=== PATIENT | male | born 1975 | race Caucasian/White ===

== ENCOUNTER → 2019-11-15 08:33 | Outpatient (CLI) | payer SELFPAY ==
[2019-11-15 10:17] LABS: Urine N gonorrhoeae NOT DETECTED
[2019-11-15 10:19] LABS: Urine Chlamydia NOT DETECTED
[2019-11-16 21:35] LABS: Bacteria Urine None Seen; WBC Urine None Seen (0-5/HPF)
[2019-11-16 21:36] LABS: Appearance Urine UA CLEAR; Bilirubin Urine UA NEGATIVE (NEGATIVE); Glucose Urine UA NEGATIVE (Negative); Ketones Urine UA NEGATIVE (NEGATIVE); Leukocyte Esterase Urine UA NEGATIVE (NEGATIVE); Nitrite Urine UA NEGATIVE (Negative); Occult Blood Urine UA 1+ (Negative); Protein Urine UA NEGATIVE (Negative); Urobilinogen Urine UA 0.2 E.U./dL (0.2); pH Urine UA 6.5 (4.5-8.0)
[2019-11-16 21:52] LABS: Color Urine UA Dark Yellow
[2019-11-16 21:54] LABS: Calcium Oxalate Crystals Urine Occasional; Culture Indicated Urine Cult Not Indicated; RBC Urine 0-1/HPF (0-5/HPF)
== END ==
PROVIDERS: Visit Provider Nurse Practitioner
DX: Z11.3 Encounter for screening for infections with a predominantly sexual mode of transmission (principal)
CPT/HCPCS: 81001; 87491; 87591

== ENCOUNTER → 2019-11-15 08:49 | Outpatient (CLI) | payer SELFPAY ==
[2019-11-15 10:49] LABS: HIV 1 & 2 Ab/Ag 4th Gen Combo NEGATIVE (NEGATIVE); Hep C Virus Ab w/Reflex Quant NEGATIVE s/c (NEGATIVE)
[2019-11-17 20:31] LABS: RPR Screen Nonreactive (Nonreactive)
[2019-11-19 13:17] LABS: HSV 1 IgM Screen Positive (Negative); HSV 2 IgM Screen Positive (Negative)
== END ==
PROVIDERS: PCP Nurse Practitioner; Visit Provider Nurse Practitioner
DX: Z11.3 Encounter for screening for infections with a predominantly sexual mode of transmission (principal)
CPT/HCPCS: 36415; 86592; 86695; 86696; 86803; 87389

== ENCOUNTER → 2022-04-03 11:33 | Outpatient (CLI) | payer OTHER, SELFPAY ==
--- NOTE | 2022-04-03 | DI.MRI.S_ITS ---
PROCEDURE: MR LUMBAR SPINE WO CON INDICATIONS: Chronic low back pain TECHNIQUE: Noncontrast sagittal T1 spin echo and T2 fast echo, sagittal STIR, and T2 fast spin echo through the lumbar spine. In cases with scoliosis, additional coronal T2 fast spin echo may be performed. COMPARISON: None. FINDINGS: Image quality: Excellent. Alignment and Curvature: There is approximately 7 millimeters of L4-L5 anterolisthesis. Bone Marrow: Mixed Modic type 1-2 reactive endplate changes noted adjacent to the L4-L5 disc. No acute vertebral body compression fractures. Spinal Cord: Conus medullaris terminates at the T12 level. Visualized cord demonstrates normal signal and size. Paraspinous Soft Tissues: No paravertebral masses. T12-L1: Normal appearance. L1-L2: Normal appearance. L2-L3: Loss of disc signal. Mild, diffuse disc bulge. Moderate-sized central disc protrusion. Mild bilateral facet hypertrophy. Severe narrowing of the central canal with compression of the nerve roots of the cauda equina. Moderate bilateral neural foraminal narrowing. L3-L4: Disc has a normal appearance. Moderate bilateral facet hypertrophy. Moderate ligamentum flavum hypertrophy. Mild epidural lipomatosis. Severe narrowing of the central canal with compression of the nerve roots of the cauda equina. L4-L5: Loss of disc signal and height. Mild, diffuse disc bulge. Mild bilateral facet hypertrophy. Epidural lipomatosis. Severe narrowing of the central canal with compression of the nerve roots of the cauda equina. Severe bilateral neural foraminal narrowing with compression of the exiting L4 nerve roots. L5-S1: Disc has a normal appearance. Mild bilateral facet hypertrophy. Epidural lipomatosis. Severe narrowing of the central canal secondary to epidural lipomatosis. No neural foraminal narrowing. IMPRESSION: 1. Grade 1 L4-L5 spondylolisthesis. 2. Multilevel degenerative disc disease. 3. Multilevel facet arthropathy. 4. Severe L2-L3, L3-L4, L4-L5 and L5-S1 central canal narrowing. 5. Severe bilateral L4-L5 neural foraminal narrowing. Dictated by: Steffany Alexis MD, PhD on 04/03/2022 at 15:44 Approved by: Steffany Alexis MD, PhD on 04/03/2022 at 15:48
== END ==
DX: M51.36 Other intervertebral disc degeneration, lumbar region (principal); M47.816 Spondylosis without myelopathy or radiculopathy, lumbar region; M47.817 Spondylosis without myelopathy or radiculopathy, lumbosacral region; M48.061 Spinal stenosis, lumbar region without neurogenic claudication; M48.07 Spinal stenosis, lumbosacral region; M43.16 Spondylolisthesis, lumbar region; M54.50 Low back pain, unspecified; G89.29 Other chronic pain
CPT/HCPCS: 72148

== ENCOUNTER → 2022-05-15 12:47 | Outpatient (CLI) | payer OTHER, SELFPAY ==
--- NOTE | 2022-05-15 | DI.CT.S_ITS ---
PROCEDURE: CT LUMBAR SPINE WO CON INDICATIONS: Spinal stenosis, lumbar region TECHNIQUE: Noncontrast 3 mm thick sections acquired from the T12 level to the sacrum. Sagittal and coronal reformats were constructed. For radiation dose reduction, the following was used: automated exposure control. COMPARISON: [facility], MR, MR LUMBAR SPINE WO CON, 04/03/2022, 11:45. FINDINGS: Image quality: Excellent. Bones: No vertebral body compression fractures. There is severe disc space narrowing at L4-5 with endplate sclerosis and grade 1 anterolisthesis measuring 10 mm due to bilateral pars defects. There is a posterior disc osteophyte at the inferior endplate of L2. T12-L1: No significant disc bulge. The foramina and central canal are patent. L1-L2: No significant disc bulge. The foramina and central canal are patent. L2-L3: Diffuse disc bulge and disc osteophytes causing moderate bilateral foraminal stenosis and moderate central canal stenosis. L3-L4: No significant disc bulge. The foramina and central canal are patent. L4-L5: Bilateral pars defects of L4 with 10 mm anterolisthesis. Severe disc space narrowing at this level. The foramina have [id number] stenosis. The central canal is patent. L5-S1: Diffuse disc bulge with no significant foraminal or central canal stenosis. Soft tissues: No retroperitoneal masses or hematomas. Visualized aorta is normal in caliber. IMPRESSION: 1. Bilateral L4 pars defects with 10 mm anterolisthesis and severe disc disease with complete loss of the disc space at L4-5. 2. Degenerative disc disease of L3-4 causing moderate bilateral foraminal stenosis and moderate central canal stenosis. 3. Diffuse disc bulge of L5-S1 with no significant foraminal or central canal stenosis. Dictated by: Juan Daniel Masterson M.D. on 05/15/2022 at 16:44 Approved by: Juan Daniel Masterson M.D. on 05/15/2022 at 16:48
== END ==
PROVIDERS: Referring Provider Orthopaedic Surgery Orthopaedic Surgery of the Spine; Visit Provider Orthopaedic Surgery Orthopaedic Surgery of the Spine
DX: M48.061 Spinal stenosis, lumbar region without neurogenic claudication (principal); M43.16 Spondylolisthesis, lumbar region; M51.36 Other intervertebral disc degeneration, lumbar region
CPT/HCPCS: 72131

== ENCOUNTER → 2022-06-10 09:49 | Outpatient (CLI) | payer OTHER, SELFPAY ==
[2022-06-10 11:38] LABS: Add Manual Diff / Slide Review NO; Basophils Absolute Auto 100 /uL (0-100); Basophils Percent Auto 1.1 % (0-2); Eosinophils Absolute Auto 100 /uL (0-450); Eosinophils Percent Auto 1.7 % (2-4); Hematocrit 44.9 % (41-53); Hemoglobin 15.3 g/dL (13.5-17.5); Lymphocytes Absolute Auto 1200 /uL (1100-4500); Lymphocytes Percent Auto 22.5 % (25-40); Mean Corpuscular HGB Conc 34.1 % (30-36); Mean Corpuscular Hemoglobin 31.8 PG (26-34); Mean Corpuscular Volume 93.3 fL (80-100); Monocytes Absolute Auto 600 /uL (0-900); Monocytes Percent Auto 10.6 % (3-14); Neutrophils Absolute Auto 3300 /uL (1500-7000); Neutrophils Percent Auto 64.1 % (50-75); Platelet Count 186 X10^3/uL (150-400); Red Blood Cell Count 4.82 X10^6/uL (4.5-5.9); Red Cell Distribution Width 13.1 % (11.6-14.8); White Blood Cell Count 5.2 X10^3/uL (4.5-11.0)
[2022-06-10 11:58] LABS: BUN Creatinine Ratio 13.6 (6-22); Blood Urea Nitrogen 11 mg/dL (9-20); Calcium 9.3 mg/dL (8.4-10.2); Carbon Dioxide 28 mmol/L (22-32); Chloride 99 mmol/L (98-107); Estimated Glomerular Filt Rate > 60 mL/min (>60); Glucose 96 mg/dL (70-100); HEMOLYSIS < 15 (0-50); Potassium 3.8 mmol/L (3.4-5.1); Sodium 139 mmol/L (137-145)
== END ==
PROVIDERS: Referring Provider Orthopaedic Surgery Orthopaedic Surgery of the Spine; Visit Provider Orthopaedic Surgery Orthopaedic Surgery of the Spine
DX: Z01.818 Encounter for other preprocedural examination (principal); Z01.812 Encounter for preprocedural laboratory examination
CPT/HCPCS: 36415; 80048; 85025; 93005

== ENCOUNTER → 2022-06-23 11:55 | Outpatient (CLI) | payer OTHER, SELFPAY ==
[2022-06-23 14:43] LABS: COVID19 -Nasal RAPID Negative (Negative)
== END ==
PROVIDERS: Referring Provider Orthopaedic Surgery Orthopaedic Surgery of the Spine; Visit Provider Orthopaedic Surgery Orthopaedic Surgery of the Spine
DX: Z20.822 Contact with and (suspected) exposure to COVID-19 (principal)
CPT/HCPCS: 87635; C9803

== ENCOUNTER 2022-06-25 06:05 | Inpatient (IN) | payer OTHER, SELFPAY ==
[2022-06-04 10:25] VITALS: BMI 33.0
[2022-06-25] VITALS (20 sets, daily range): BP systolic 98–153; BP diastolic 62–103; PULSE 63–109; RESP 14–25; TEMP 35.7–36.9; O2SAT 85–100; BMI 32.7
--- NOTE | 2022-06-25 | DI.RAD.S_ITS ---
PROCEDURE: XR LUMBAR SPINE 2-3V INDICATIONS: L3-4 L4-5 TLIF TECHNIQUE: 2 intraoperative fluoroscopic images obtained. COMPARISON: None. FINDINGS: Two intraoperative fluoroscopic images obtained demonstrating changes of lower lumbar spine fusion with rods and pedicle screws and interbody spacers. IMPRESSION: Intraprocedural fluoroscopy was provided for guidance and anatomical localization. Please see the procedure report for further details. Dictated by: Fox Torrez M.D. on 06/25/2022 at 20:58 Approved by: Fox Torrez M.D. on 06/25/2022 at 21:00
[2022-06-25] MEDS: LACTATED RINGERS 1,000 ML 42 ML IV ×5 (07:19→14:21)
--- NOTE | 2022-06-25 07:46 | PM.PREOP ---
Pre-operative Note COVID-19 COVID-19 status: Negative Result date/Date tested (Pos, Neg/Pending): 06/24/22 Criteria for continued procedure: Expected advancement of disease process, Possibility delay results in more complex future surgery or treatment, Increased loss of function, Continuing or worsening of significant or severe pain and Deterioration of the patient's condition or overall health Interval Note History & Physical reviewed/Exam performed by Physician: Yes Changes to H&P: No
[2022-06-25] MEDS: CLINDAMYCIN 900 MG/50 ML PIGGYBACK 50 MG IV ×3 (08:00→23:05)
--- NOTE | 2022-06-25 09:06 | SUR.OPER ---
Prone on spine table, head in foam head support, padded chest and pelvic supports, gel pad at knees, lower legs supported by pillows; nipples, genitalia and toes free of pressure, arms secured on foam padded arm boards at <90 degrees abduction. Tape over blanket at thigh secured to table. Gel pad placed between heels. Final positioning approved by surgeon.
[2022-06-25] MEDS: BUPIVACAINE LIPOSOME 266 MG/20 ML VIAL INJ (12:40)
[2022-06-25] MEDS: BUPIVACAINE 0.25% (PF) 30 ML, EPINEPHrine 0.3 MG INJ (12:40)
--- NOTE | 2022-06-25 12:42 | P.OP_ITS ---
Operative Date/Time/Diagnoses Date of procedure: 06/25/22 Time of procedure: 07:45 Pre-op diagnosis: 1. L3-4, L4-5, L5-S1 spinal stenosis with epidural lipomatosis 2. L4-5 spondylolisthesis 3. L3-S1 spondylosis with radiculopathy Post-op diagnosis: same Procedure & Clinicians Procedure: 1. L3-4, L4-5 Postero-lateral and posterior interbody fusion 2. L3-4, L4-5 interbody cage placement. 3.L3-4, L4-5 decompressive laminectomy with bilateral facetecomies 4. L3-4, L4-5 Posterior segmental instrumentation 5. L5-S1 left hemilaminectomy 6. [place] of bone marrow from iliac crest 7. Utilization of microsurgical technique and operating microscope 8. Utilization of robotic assisted navigation Same procedure as scheduled: Yes Indications: Patient has been having chronic back pain and worsening lumbar radiculopathy. Patient failed multiple conservative management with worsening pain weakness and numbness in his lower extremity. Patient has been having difficulty performing activity of daily living. After discussing risks benefits of treatment options, patient elected proceed with surgery. Surgeon: Antonia John Anesthesiology Faculty: Genny Castro Click Yes if Unassisted: Yes Anesthesia Type: General Operative Notes Closure Type: primary Specimen(s): none sent Prosthetic devices, grafts, tissues, transplants, or devices: Globus CREO MIS screws, Rise cages Applied: catheter Estimated Blood Loss (mL): 400 Blood products transfused: none Procedure in detail: Patient was seen in the preoperative area. Risks and benefits of the surgery was discussed with the patient. Informed consent was obtained from the patient and placed in the chart. Surgical site was marked. Patient was taken to the operative room. General anesthesia was administered. Prophylactic antibiotic was given to the patient less than 30 min before the incision was made. Patient was placed into a prone position on the [place] table. Patient's back was then prepped and draped in the sterile fashion. Time-out was performed at this time. After patient was prepped and draped, patient's PSIS was palpated and marked bilaterally. Small 1 cm incision was made over the PSIS for placement of the reference probes. Two trocar was placed into the PSIS 1 on each side. The reference probe was attached to the trocar of the reference apparatus. At this time the C-arm imaging was used to confirm AP and lateral of L3, L4-L5 vertebrae and merged the C-arm imaging using the [employer] robotic navigation system with the CT of the lumbar spine. After successful merging was completed and confirmed, skin marker was used to abhay out the skin incision using the [employer] robotic arm. Bilateral incision was made at this time. Pre templated trajectory was used and guided using the [employer] robotic navigation system for bilateral L3 L4, L5 pedicle screw placement. This was done by using the robotic arm to guide the high-speed bur to make a cortical entry point. Next a drill was placed also using the robotic arm and guided using the navigation system drilling partially through bilateral L3, L4, L5 pedicles. Next L3, L4, L5 pedicle screws it was pre templated and measured was placed onto the power commercial collections driver and inserted into the pedicles bilaterally. After all 6 screws were placed C-arm imaging was taken of both AP and lateral to confirm the placement. Excellent placement of the screws were confirmed and a matched precisely with the pre planned screw placement using the navigation system. MARs retractor was inserted using [employer] guidence. Globus MARS retractors was placed inside the incision and docked onto the L3, L4 lamina. Using microsurgical technique and operating microscope, a L3, L4 laminectomy and L3-4, L4-5 facetectomy was performed using a Kerrison rongeur. Patient was found have severe lateral recess and neural foramen stenosis which was fully decompressed after the laminectomy facetectomy. More than 75% of the facets were removed during the process of decompression rendering L3-4, L4-5 level grossly unstable and required a fusion procedure at the same time. The disc space at L3-4, L4-5 was identified, and a total diskectomy was performed at L3- 4, L4-5 level. The endplates were decorticated using a rasp and shaver. The total diskectomy and decortication was performed at L3-4, L4-5 level in order to to accomplish a L3-4, L4-5 fusion. The local bone from the laminectomy and face tectomy was saved for local bone grafting. After the total diskectomy and decortication was completed, Trifecta bone graft material was combined with local bone that was harvested earlier. MARs retractor was redircted to over L5 lamina. Using microsurgical technique and operating microscope, L5 left hemilaminectomy was performed using a Kerrison rongeur and micro curette. Patient was found to have significant amount of epidural lipomatosis at all 3 levels of the epidural space. The lipomas were carefully resected using a pituitary Kerrison rongeur to further decompress the epidural space. At this time, a separate skin is incision was made over the iliac crest. A Jamshidi needle was inserted into the iliac crest through a separate skin incision. 5 cc of bone marrow aspiration was obtained through the separate skin incision using a Jamshidi needle from the iliac crest. The bone marrow aspiration was combined with local bone and the Trifecta bone grafting material. The bone grafting material was placed into the L3-4, L4-5 interbody space along with expandable cages. One cage each was inserted into the L3-4 L4-5 interbody space along with bone graft material. The cage was expanded to its maximum height using the torque limiting screwdriver. The disc preparation as well as the cage insertion were also performed under navigation guidance. After the cage was placed, AP and lateral C-arm imaging was taken to confirm placement of the cage and excellent position was confirmed. Globus MARS retractor was inserted and docked onto the L3-4, L4-5 posterolateral gutter on the right side. Using the power drill, posterior-lateral decortication was performed at L3-4, L4-5 level until bleeding cortical bone was identified. The remaining bone grafting material was placed into the L3-4, L4-5 posterior lateral gutter he order to accomplish posterolateral fusion at the L3- 4, L4-5 level. At this time the tulips were attached to the L3, L4-L5 pedicle screw shanks. After measuring the length of the rods, they were inserted into the tulips of the pedicle screws and locked in place using locking caps and torque limiting screwdriver bilaterally. Total 6 caps and 2 titanium rods was used in order to complete the posterior instrumentation construct. L4-5 spondylolisthesis was partially reduced using the threaded unit leader and the locking cap. After all the hardware was placed, and confirmed with AP and lateral C-arm imaging, the wound was then irrigated with sterile normal saline and packed with Ray-Moe gauze for 3 min to accomplish hemostasis. After the gauze was removed the deep fascia was closed with #1 Vicryl suture. The subcutaneous layer was closed with 2-0 Vicryl. The skin was closed with skin karo. Patient tolerated the procedure well. There were no complications. Neuro monitoring system was used to monitor patient's neurologic status throughout entire procedure. There was no disturbance of the neural monitoring signals throughout the case. Complications: none Post-operative Condition: stable Disposition: PACU Plan for aftercare: Admit to inpatient hospital
[2022-06-25] MEDS: fentaNYL 100 MCG/2 ML INJ IV (13:05)
[2022-06-25] MEDS: HYDROMORPHONE 2 MG INJ IV ×5 (13:25→14:16)
--- NOTE | 2022-06-25 13:38 | SUR.PHASEI ---
Pt having moderate - severe pain in bilat anterior hips. Dark blanching redness noted. Denies any pain in back. Notified Dr. Hawley who is at bedside. Orders received, including to give 1mg of Dilaudid instead of the 0.5mg as ordered.
[2022-06-25] MEDS: methocarbamoL 500 MG TABLET 750 MG PO (13:47)
--- NOTE | 2022-06-25 14:57 | SUR.PHASEI ---
Addendum entered by Cindy Gates R.N. 06/25/22 15:05: Updated SO Lisa on pt stay in recovery and has transferred to room. Original Note: 1440: Pt reports pain as tolerable, Dressing c/d/i, vss, and ready to transfer to room. Report given to receiving RN using SBAR with time allowed for questions. Pt transferred to room 205 bedside handoff with receiving RN.
--- NOTE | 2022-06-25 15:02 | PC.NURSE ---
Day shift: Pt on unit from PACU at approx 1450. He is A&Ox4. VS WNL. 2L NC 97%. Dressing CDI. Bilat hips with mild redness of the pressure points also mild redness noted across chest but below the nipple line. CMS intact. Oriented to room and call light. Agrees to not get OOB w/o help from staff. Pt drinking water and had approx 100mls emesis. Encouraged to drink and eat slower. Tolerating SCD's. Has ice pack around his back area. Will continue with post-op plan of care.
[2022-06-25] MEDS: SODIUM CHLORIDE 0.9% 1,000 ML 100 ML IV (15:20)
[2022-06-25] MEDS: OXYCODONE IR 5 MG TABLET 10 MG PO ×2 (15:44→20:46)
[2022-06-25] MEDS: ONDANSETRON 4 MG/2 ML INJ IV ×2 (15:44→20:38)
[2022-06-25] MEDS: hydrOXYzine pamoate 25 MG CAPSULE PO ×2 (15:44→20:47)
[2022-06-25] MEDS: HYDROMORPHONE 0.5 MG INJ IV ×4 (15:45→23:05)
[2022-06-26] MEDS: OXYCODONE IR 5 MG TABLET 10 MG PO ×2 (02:15→07:33)
[2022-06-26] MEDS: HYDROMORPHONE 0.5 MG INJ IV ×3 (02:15→13:46)
[2022-06-26] MEDS: ONDANSETRON 4 MG/2 ML INJ IV ×2 (02:53→08:33)
[2022-06-26] MEDS: SODIUM CHLORIDE 0.9% 1,000 ML 100 ML IV (02:53)
[2022-06-26 06:00] VITALS: BP 120/74; PULSE 88; RESP 18; TEMP 36.1; O2SAT 99
[2022-06-26 06:27] LABS: Hematocrit 34.5 % (41-53)
[2022-06-26] MEDS: hydrOXYzine pamoate 25 MG CAPSULE PO ×3 (07:33→18:04)
[2022-06-26 08:00] VITALS: BP 111/69; PULSE 89; RESP 17; TEMP 36.6; O2SAT 97
[2022-06-26] MEDS: DOCUSATE 100 MG CAPSULE PO ×2 (08:33→20:08)
[2022-06-26] MEDS: lisinopriL 20 MG TABLET PO (08:33)
[2022-06-26] MEDS: SODIUM CHLORIDE 0.9% FLUSH 10 ML IV ×2 (08:38→20:08)
--- NOTE | 2022-06-26 09:36 | PT.IIE ---
Current Diagnoses Spondylolisthesis, lumbar region (06/25/22) Spinal stenosis, lumbar region with neurogenic claudication (06/25/22) Surgery Performed Operation Date: 06/25/22 07:45 Actual Procedures p L3-4, L4-5 TLIF w. posterior instumentation, L5-S1 left hemilaminectomy-Robot - Antonia John MD Medical History (Last Updated 06/04/22 @ 10:29 by Marily Miller RN) HTN (hypertension) Physical Therapy Inpatient Evaluation/Re-Eval M1 PT/OT-IP Prior Functional Status Start: 06/26/22 11:35 Freq: NEEDED Status: Active Protocol: Document 06/26/22 09:36 AB (Rec: 06/26/22 11:55 AB [id number]) Medical Review Prior Functional Status Medical History Reviewed Yes Communication able to make needs known Mobility and Gait pt stated that he is iindependent with all mobilities and ambulation without AD Social History Household Members none Living Arrangements House Number of Floors (Floors) Two Floors Number of Stairs To Enter/Railing? 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 M2 PT-IP Current Condition Start: 06/26/22 11:35 Freq: NEEDED Status: Active Protocol: Document 06/26/22 09:36 AB (Rec: 06/26/22 11:55 AB [email or web address]) Physical Therapy Current Condition Current Condition Evaluation Date 06/26/22 Treatment Diagnosis s/p L3-4, L4-5 TLIF; difficulty in walking Onset Date 06/25/22 M3 PT-IP Subjective Start: 06/26/22 11:35 Freq: NEEDED Status: Active Protocol: Document 06/26/22 09:36 AB (Rec: 06/26/22 11:55 AB [email or web address]) Subjective Physical Therapy Visit Type Type Initial Evaluation Visit Start Time 09:36 Visit Stop Time 10:18 Total Visit Minutes 42 Number of TRACK HOE OPERATOR Visits 0 Physical Therapy Visit Comments Patient Comments agreeable to do PT; c/o increase LBP M4 PT-IP Mobility and Gait Start: 06/26/22 11:35 Freq: NEEDED Status: Active Protocol: Document 06/26/22 09:36 AB (Rec: 06/26/22 11:55 AB [email or web address]) PT-Bed Mobility Assessment Rolling Type of Rolling Log Rolling Level of Assist Maximal Assistance,1 Person Assistance Supine to Sit Supine to Sit Maximum Assistance,1 Person Assistance PT-Transfer Assessment Sit to and From Stand Sit to and from Stand Moderate Assistance,1 Person Assistance,Use of Upper Extremities Equipment Transfer Assistive Device Gait Belt,Front Wheeled Walker Orthotic/Prosthetic Devices or Brace: No Transfers Transfer Destination Chair Transfer Technique ambulated Transfer Ability Level of Assist Moderate Assistance,1 Person Assistance,Use of Upper Extremities Comments Mobility Comments educated pt regarding back precautions and log roll bed mobility. pt c/o 06/25 LBP. completed supine to sit log roll max a and max cues. able to sit on EOB SBA. completed sit to stand mod A and max cues. ambulated in room using FWW ~15 ft mod A and cues. agreed to sit on chair. positioned on chair. ice pack provided. call light and table placed within reach. caregiver training set up. Friend unable to come today but will come in tomorrow morning at 900am for training. Gait Assessment Gait Gait Assistance Required: Moderate Assistance,1 Person Assist Distance (Feet) 15 Able to Maintain Weight Bearing Status Yes During Gait Assistive Devices Assistive Device Gait Belt,Front Wheeled Walker Orthotic/Prosthetic Devices or Brace: No Gait Deviations General Gait Pattern Antalgic,Decreased Stride Length,Decreased Feet Clearance,Step-to Gait Factors Limiting Gait Function Factors Limiting Gait Function Decreased Activity Tolerance, Decreased Strength,Limited Range of Motion,Pain,Poor Balance,Poor Safety Awareness PT-Balance Assessment Sitting Balance and Reactions Static Sitting Balance Ability Good Dynamic Sitting Balance Ability Good Standing Balance and Reactions Static Standing Balance Ability Fair Dynamic Standing Balance Ability Fair Device Used FWW M5 PT-IP Objective Assessments Start: 06/26/22 11:35 Freq: NEEDED Status: Active Protocol: Document 06/26/22 09:36 AB (Rec: 06/26/22 11:55 AB [email or web address]) Orientation Orientation/Cognition Level of Alertness Alert Orientation Name,Place,Situation Safety Awareness Decreased Safety Awareness Memory Description Short Term Impaired Gross Range of Motion Lower Extremity ROM Assessment Within Functional Limits Strength Lower Extremity Strength Assessment Right Impaired Hip 3+/5 Knee 3+/5 Sensation Assessment Sensation Gross Sensation WNL Muscle Tone Muscle Tone WNL Yes M6 PT-IP Treatment Start: 06/26/22 11:35 Freq: NEEDED Status: Active Protocol: Document 06/26/22 09:36 AB (Rec: 06/26/22 11:55 AB [email or web address]) Physical Therapy Treatment Education Education Provided Precautions,Weight Bearing Status,Post-Op Packet,Safety M7 PT-IP Assessment and Plan Start: 06/26/22 11:35 Freq: NEEDED Status: Active Protocol: Document 06/26/22 09:36 AB (Rec: 06/26/22 11:55 AB [email or web address]) PT Summary Assessment and Plan Potential Rehabilitation Potential Good Status of Condition at Evaluation Evolving Summary Impairments Pain,ROM,Strength,Balance, Coordination,Sensation,Tone, Cognition,Bed Mobility, Transfers,Gait,Activity Tolerance Assessment Summary pt requiring max A for bed mobility, mod A for transfers and ambulation using FWW and with c/o increase LBP of 8/10 affecting mobility assistance level. caregiver training set up for tomorrow at 9 am. will continue to assess progress. pt plans to go home and his friend will assist him. Pt may benefit from HHPT . Goals Bed Mobility Goal Independent Transfer Goal Independent,Front Wheeled Walker Gait Goal Independent,Front Wheel Walker Gait Distance 200 Days to Meet Goals 5 Frequency of Treatment Frequency Of Treatment Twice a Day Treatment Plan Physical Therapy Treatment Plan Bed Mobility Training,Transfer Training,Gait Training, Therapeutic Exercise,Balance Retraining,Post Op Education, Discharge Planning,Hot or Cold Pack,Neuromuscular Re-ed, Coordination Retraining,Manual Therapy Precautions Lumbar Precautions Log Roll,No Twisting,Limit Bending,Lifting Restriction of 10 lbs,Gait Belt above Incisional Area Recommendations To Nursing Amount of Assist Needed 1 Person Assist Discharge Recommendations PT Discharge Recommendations Home with 08/06 Assist Available,Home Health Equipment Needed for Home Before FWW Discharge Transportation Needs at Discharge Private Vehicle
--- NOTE | 2022-06-26 11:04 | OT.IP.EVAL ---
Current Diagnoses Spondylolisthesis, lumbar region (06/25/22) Spinal stenosis, lumbar region with neurogenic claudication (06/25/22) Surgery Performed Operation Date: 06/25/22 07:45 Actual Procedures p L3-4, L4-5 TLIF w. posterior instumentation, L5-S1 left hemilaminectomy-Robot - Antonia John MD Past Medical History (Last Updated 06/04/22 @ 10:29 by Marily Miller RN) HTN (hypertension) Occupational Therapy Inpatient Evaluation/Re-Eval M2 OT-IP Current Condition Start: 06/26/22 11:15 Freq: Status: Active Protocol: Document 06/26/22 10:26 [facility] (Rec: 06/26/22 11:38 [facility] [id number]) Occupational Therapy Current Condition Current Condition Evaluation Date 06/26/22 Treatment Diagnosis S/P L3-4, L4-5 TLIF, and L5-S1 left hemilaminectomy Diagnosis Onset Date 06/25/22 M3 OT- IP Subjective and Pain Start: 06/26/22 11:15 Freq: Status: Active Protocol: Document 06/26/22 10:26 [facility] (Rec: 06/26/22 11:38 [facility] [id number]) OT- Subjective Occupational Therapy Visit Type Type Initial Evaluation Visit Start Time 10:26 Visit Stop Time 11:04 Total Visit Minutes 38 Occupational Therapy Visit Comments Patient Comments Pt agreed to get up for OT eval. Patient/Caregiver Goals TO go home. OT Pain Assessment Pain When Pain Assessed At Rest Pain Present Pain Present Pain Reported Location Back Intensity 7 Scale Used Numeric (0 - 10) M4 OT- IP ADL's Start: 06/26/22 11:15 Freq: Status: Active Protocol: Document 06/26/22 10:26 [facility] (Rec: 06/26/22 11:38 [facility] [id number]) OT [id number] Comments OT Self-Feeding Comments Not at meal time. OT ADL-Grooming General Evaluation Grooming Ability Independent Areas Needing Assistance Retrieving/Set-up of Grooming Items Comments OT Grooming Comments Pt able to do while standing at the sink with FWW. OT ADL-Oral Care General Eval Oral Care Ability Independent Areas of Assistance Retrieving/Set-Up of Items Comments Oral Care Comments Pt needing initial VC to just spit into the cup or hinge at his hips to best follow his back precautions. OT ADL-Dressing General Eval Lower Body Dressing Ability Maximum Assistance Areas Needing Assistance Socks Comments OT Dressing Comments Able to show pt LB dressing equipment as pt not able to comfortably cross his legs to be able to davon/doff his socks at this time. Pt able to practice use of leather finisher and sock aid. Pt states to just wear flip flops, informed pt to be sure his footwear fits well to prevent falling/trippng. OT ADL-Toileting General Evaluation Toileting Ability Total Assistance Comments OT Toileting Comments Pt able to comfortable reach while standing with FWW to get to his backside to wipe during simulation of hygiene needs. OT ADL-Bathing Comments OT Bathing Comments Pt looking to get a shower chair to use. M5 OT- IP IADL's Start: 06/26/22 11:15 Freq: Status: Active Protocol: Document 06/26/22 10:26 [facility] (Rec: 06/26/22 11:38 [facility] [id number]) OT-Instrumental Activities of Daily Living Home Safety Awareness Awareness of Need for Assistance at Home Good Awareness Ability to Problem Solve Emergency Able to Problem Solve Situations Home Safety Comments Pt has a coworker that can be home to assist him as needed. Meal Preparation Meal Preparation Caregiver Provides Assist Covering And Lining Supervisor Covering And Lining Supervisor Caregiver Provides Assist M6 OT- IP Functional Cognition Start: 06/26/22 11:15 Freq: Status: Active Protocol: Document 06/26/22 10:26 [facility] (Rec: 06/26/22 11:38 [facility] [id number]) Cognitive Factors Limiting Selfcare Function Cognitive Ability Level of Alertness Alert Patient Orientation Name,Age,Birthday,Month,Date, Year,Day of Week,Place, Situation Attention Span Ability Capable of Focused Attention, Capable of Sustained Attention Ability to Follow Commands Able to Follow One Step Commands Memory Description No Deficits Noted Cognitive Comments Cognitive Assessment Comments At this time pt able to follow directions well to incorporate back precautions for ADl and mobility needs. Pt needing initial reminder to scoot forwards before coming to stand. OT- Vision and Hearing OT- Hearing Assessment OT- Hearing Assessment WFL M7 OT- IP Mobility and Balance Start: 06/26/22 11:15 Freq: Status: Active Protocol: Document 06/26/22 10:26 [facility] (Rec: 06/26/22 11:38 [facility] [id number]) OT-Transfer Assessment Sit to and From Stand Sit to and from Stand Contact Guard Assistance Transfers Transfer Ability Standby Assistance,Contact Guard Assistance Technique Transfer Destination Bed,Chair Transfer Technique Stand Step Pivot Devices Transfer Assistive Devices Gait Belt,Front Wheeled Walker Comments Mobility Comments CGA to come to stand and tends to hesitate to come all the way to stand due to his pain. Once on his feet pt able to walk with FWW CGA/close SBA and assist to move the IV pole . Pt requesting pain meds at the end of the session, nursing notified. OT- Balance Assessment Sitting Balance and Reactions Static Sitting Balance Ability Normal Dynamic Sitting Balance Ability Good Standing Balance and Reactions Static Standing Balance Ability Fair Dynamic Standing Balance Ability Fair M8 OT- IP Objective Assessments Start: 06/26/22 11:15 Freq: Status: Active Protocol: Document 06/26/22 10:26 [facility] (Rec: 06/26/22 11:38 [facility] [id number]) OT Sensation Assessment Comments Summary Comments Pt has numbness in his thighs, under his right big toe and 2nd toe at this time. PA was present and aware. M9 OT- IP Assessment and Plan Start: 06/26/22 11:15 Freq: Status: Active Protocol: Document 06/26/22 10:26 [facility] (Rec: 06/26/22 11:38 [facility] [id number]) OT Summary Assessment and Plan Potential Rehabilitation Potential Excellent Analytic Complexity at Evaluation Low Summary OT Impairments Pain,Balance,Sensation, Functional Mobility,Dressing, Toileting,Bathing,Toilet Transfers,Shower Transfers Progress Towards Goals Progressing Toward Goals Assessment Summary Pt low complexity and main barriers are pain, difficulty with transition of movements, and needing one person assist for ADL and mobility needs. PT has already set up caregiver training with pt and to touch base with his co- worker after PT session for OT needs. Pt will benefit from a shower chair, FWW and LB dressing equipment at this time. Pending caregiver training and progress pt to go home with 24/7 assist initially. Goals Self-Feeding Goal Independent Grooming Goal Independent Dressing Goal Independent Toileting Goal Independent Bathing Goal Independent Toilet Transfer Goal Independent Shower Transfer Goal Independent Patient/Caregiver Education Goal Demonstrate Post-Op Precautions,Caregiver Independent Assisting Patient Days to Meet Goals 15 Frequency of Treatment Frequency Of Treatment Once a Day Treatment Plan OT Treatment Plan ADL Training,Functional Mobility,Patient/Family Education,Discharge Planning Discharge Recommendations OT Discharge Recommendations Home with 24/7 Assist Available Home Equipment Needs FWW, LB dressing equipment, showr chair Transportation Needs at Discharge Private Vehicle
[2022-06-26] MEDS: GABAPENTIN 300 MG CAPSULE PO ×2 (11:12→20:08)
[2022-06-26] MEDS: HYDROMORPHONE 4 MG TABLET PO ×3 (11:12→17:28)
--- NOTE | 2022-06-26 11:35 | CM.DANOTE ---
DCP Assessment: Payor: Redd Holland PCP: [facility] PCP Pt is a 47 y.o. M who presented to the hospital for a scheduled TLIF surgery on 06/25. Pt was referred to ortho by his PCP @ the [facility] for chronic low back pain. Pt stated that he has been having trouble with performing ADL's. Pt has a PMH of HTN, Pt is on the floor for further management and evaluation of surgical intervention. DCP met with pt this morning to discuss discharge needs. Pt sitting up in chair on phone. DCP introduced herself and role. Pt states that he lives in [place] with his spouse. 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 Pt denies DME use. Pt states that his co-worker is going to pick him up from the hospital at discharge and take him to their place as he is out of town and his co-worker offered to let pt stay in their guest room until she returns. Pt states that they are anticipating discharge on Thursday 06/28. Pt denies any further resources at this time. DCP does not identify any at this time. DCP to continue to follow. White board was updated and instructed to call with any questions. Pt thankful for the discussion. Pt to continue working with PT/OT. P: Once pt is medically stable and clear for discharge, pt to discharge home via Renuka rojo POV. Nona Lynn RN/DELILAH Discharge Planning/Care Management CM Discharge Assessment Start: 06/26/22 08:48 Freq: Status: Active Protocol: Document 06/26/22 11:31 [facility] (Rec: 06/26/22 11:32 [facility] [id number]) Discharge Planning Assessment Assigned Cage Clerk Nona Lynn RN/DELILAH Advance Directives? No History Provided By Patient Prior Living Arrangements House Household Members spouse Type of transporation used prior to Drives own vehicle admit Independent with ADL's Yes Is patient alert and oriented? Yes Caregiver for Another No Barriers to Discharge No Discharge Plan Home Referrals Initiated None needed Additional Comment At this time Whiteboard Updated in Patient Room with Yes name and ext. # of Cage Clerk Comment Instructed to call Review Status In Process Please Provide Date Initial DC 06/26/22 Assessment Was Performed Next Review Type Continued Stay Review Pre-Anesthesia Assessment Start: 06/04/22 10:25 Freq: Status: Active Protocol: Document 06/04/22 10:25 [facility] (Rec: 06/04/22 11:50 [facility] [id number]) Pre-Anesthesia Assessment PAC Comment 1100-Unable to reach pt for scheduled phone assessment. 1140-Pt called back, spoke with Melisa, states unable to do PAC call today until after 1530. Minimal records available, limited chart review Patient Information Reviewed Via Chart Review,Phone Assessment Comment Pre-op labs/ECG, COVID screen not identified Primary Care Provider Unknown Seen Specialist in Last 12 Months Yes Specialist Seen Orthopedist Primary Language Maltese Cobbler Apprentice Required No Height 185.42 cm Weight 113.398 kg Body Mass Index (BMI) 33.0 Anesthesia Review Requested No Smoking Status Never smoker Pain Present Pain Reported Musculoskeletal Symptoms Back Pain Patient is completely paralyzed or No completely immobile Mental Status Oriented to own ability Currently Taking a Beta Gail No Anti-Coagulant Therapy No Cardiac Testing No Hx Pacemaker/ICD No Pacemaker Rep Required? No Cardiac Clearance Received Not Applicable Urinary Catheter Present No Hx Urinary Self Catheterization No Marital Status Lives With spouse Patient Discharge Plan Description Return Home
[2022-06-26 12:00] VITALS: BP 129/63; PULSE 97; RESP 16; TEMP 36.3; O2SAT 98
--- NOTE | 2022-06-26 12:34 | PT.IPTN ---
Addendum entered and electronically signed by Richa Fernandez PT 06/26/22 16:03: This is to certify that I have reviewed and is in direct supervision with this pt's care. Original Note: Current Diagnoses Spondylolisthesis, lumbar region (06/25/22) Spinal stenosis, lumbar region with neurogenic claudication (06/25/22) Surgery Performed Operation Date: 06/25/22 07:45 Actual Procedures p L3-4, L4-5 TLIF w. posterior instumentation, L5-S1 left hemilaminectomy-Robot - Antonia John MD Physical Therapy Treatment Note M2 PT-IP Current Condition Start: 06/26/22 11:35 Freq: NEEDED Status: Active Protocol: Document 06/26/22 09:36 [facility] (Rec: 06/26/22 11:55 [facility] [id number]) Physical Therapy Current Condition Current Condition Evaluation Date 06/26/22 Treatment Diagnosis s/p L3-4, L4-5 TLIF; difficulty in walking Onset Date 06/25/22 M3 PT-IP Subjective Start: 06/26/22 11:35 Freq: NEEDED Status: Active Protocol: Document 06/26/22 12:34 (Rec: 06/26/22 15:52 [id number]) Subjective Physical Therapy Visit Type Type Treatment Note Visit Start Time 12:34 Visit Stop Time 12:50 Total Visit Minutes 16 Number of SAMPLE FINISHER Visits 0 Physical Therapy Visit Comments Patient Comments agreeable to do PT M4 PT-IP Mobility and Gait Start: 06/26/22 11:35 Freq: NEEDED Status: Active Protocol: Document 06/26/22 12:34 (Rec: 06/26/22 15:52 [id number]) PT-Bed Mobility Assessment Rolling Type of Rolling Log Rolling Level of Assist Standby Assistance,1 Person Assistance Supine to Sit Supine to Sit Standby Assistance,1 Person Assistance Sit to Supine Sit to Supine Standby Assistance,1 Person Assistance PT-Transfer Assessment Sit to and From Stand Sit to and from Stand Moderate Assistance,1 Person Assistance Equipment Transfer Assistive Device Gait Belt,Front Wheeled Walker Orthotic/Prosthetic Devices or Brace: No Transfers Transfer Destination Bed Transfer Technique ambulated Transfer Ability Level of Assist Minimal Assistance,1 Person Assistance Comments Mobility Comments pt BP in sittin/64. pt completed sit to stand from chair mod A and min cues with FWW. ambulated in room using FWW ~20ft min A and cues, cued pt to correct stooped posture and for steadiness. sat on EOB. pt completed sit to stand from bed x3 reps mod A, min cues with FWW. Pt requested to lay in bed. pt completed sit <> supine log roll x3 SBA and no cues. pt positioned supine in bed, call light and table placed within reach. caregiver training confirmed for tomorrow. Pt reports that he will contact friend to acquire FWW for discharge. Gait Assessment Gait Gait Assistance Required: Minimum Assistance,1 Person Assist Distance (Feet) 20 Able to Maintain Weight Bearing Status Yes During Gait Assistive Devices Assistive Device Gait Belt,Front Wheeled Walker Orthotic/Prosthetic Devices or Brace: No Gait Deviations General Gait Pattern Antalgic,Decreased Stride Length,Decreased Feet Clearance,Flexed Trunk,Narrow Based Gait,Step-to Gait Factors Limiting Gait Function Factors Limiting Gait Function Decreased Activity Tolerance, Decreased Strength,Limited Range of Motion,Pain,Poor Balance,Poor Safety Awareness PT-Balance Assessment Sitting Balance and Reactions Static Sitting Balance Ability Good Dynamic Sitting Balance Ability Good Standing Balance and Reactions Static Standing Balance Ability Fair Dynamic Standing Balance Ability Fair Device Used FWW M5 PT-IP Objective Assessments Start: 06/26/22 11:35 Freq: NEEDED Status: Active Protocol: Document 06/26/22 12:34 (Rec: 06/26/22 15:52 [id number]) Orientation Orientation/Cognition Level of Alertness Alert Orientation Name,Place,Situation Language Function Ability No Deficits Noted Safety Awareness Decreased Safety Awareness Memory Description No Deficits Noted Coordination Assessment Gross Coordination Gross Coordination WNL Muscle Tone Muscle Tone WNL Yes M6 PT-IP Treatment Start: 06/26/22 11:35 Freq: NEEDED Status: Active Protocol: Document 06/26/22 12:34 (Rec: 06/26/22 15:52 [id number]) Physical Therapy Treatment Education Education Provided Safety M7 PT-IP Assessment and Plan Start: 06/26/22 11:35 Freq: NEEDED Status: Active Protocol: Document 06/26/22 12:34 (Rec: 06/26/22 15:52 [id number]) PT Summary Assessment and Plan Potential Rehabilitation Potential Good Summary Impairments Pain,ROM,Strength,Balance, Coordination,Bed Mobility, Transfers,Gait,Activity Tolerance Progress Towards Goals Slow Progress due to Pain,Slow Progress due to Activity Tolerance Assessment Summary pt requiring min to mod A for bed mobility and transfers with FWW. Caregiver training scheduled for tomorrow morning to reassess safe discharge and progression. pt plans on obtaining a FWW to go home with friend who will be assisting. Pt may also benefit from HHPT to improve mobilty and independence. Goals Bed Mobility Goal Independent Transfer Goal Independent,Front Wheeled Walker Gait Goal Independent,Front Wheel Walker Gait Distance 200 Days to Meet Goals 5 Frequency of Treatment Frequency Of Treatment Twice a Day Treatment Plan Physical Therapy Treatment Plan Bed Mobility Training,Transfer Training,Gait Training, Therapeutic Exercise,Balance Retraining,Post Op Education, Discharge Planning,Hot or Cold Pack,Neuromuscular Re-ed, Coordination Retraining,Manual Therapy Precautions Lumbar Precautions Log Roll,No Twisting,Limit Bending,Lifting Restriction of 10 lbs,Gait Belt above Incisional Area Recommendations To Nursing Amount of Assist Needed 1 Person Assist Discharge Recommendations PT Discharge Recommendations Home with / Assist Available,Home Health Equipment Needed for Home Before FWW Discharge Transportation Needs at Discharge Private Vehicle,Wheelchair/ Cabulance
--- NOTE | 2022-06-26 12:41 | P.PN_ITS ---
Subjective Subjective Date Patient Seen: 06/26/22 Time Patient Seen: 11:00 Interval history: The patient is complaining of severe low back pain, nausea and vomiting, bilateral thigh and right toe numbness and tingling. He is working with PT and OT. He is having difficulty passing gas, urinary catheter is in place. Exam Vital Signs (past 8 hours): - 06/26/22 06:00 06/26/22 08:00 Temperature 97.0 F L 98 F Pulse Rate 88 89 Respiratory Rate 18 17 Blood Pressure 120/74 111/69 Pulse Oximetry 99 97 Oxygen Flow Rate 0 0 Oxygen Delivery Method Room Air Oxygen Flow Rate 0 Narrative Exam Narrative: Pleasant 47yo male, resting in his chair with OT, mlid distress due to pain. Dressing demonstrates serosangiunous drainage, no surrounding erythema or induration. Bilateral lower extermities: motor function is grossly intact, sensation is decreased on the plantar aspect of the right big toe, otherwise sensation is grossly intact. Bilateral calves are soft and nonTTP. Objective Labs Result Diagrams: 06/26/22 05:50 Labs: Laboratory Results - last 24 hr 06/26/22 05:50 Hgb 12.0 L Hct 34.5 L PFSH Medical History HTN (hypertension) Social History household members: spouse Smoking Status: Never smoker alcohol intake: current Assessment & Plan Post-op Postoperative Procedures: Procedures Operation Date: 06/25/22 07:45 Actual Procedure Side Surgeon p L3-4, L4-5 TLIF w. posterior instumentation, L5-S1 left hemilaminectomy-Robot Antonia John MD Postoperative day: 1 Postoperative status: marginal pain control Postoperative status narrative: -marginal pain control s/p L3-4, L4-5 TLIF; L5- S1 left hemilaminectomy Postoperative plan narrative: -mobilize with PT/OT. No bending, lifting, or twisting x6 weeks. -multimodal pain management: added Dilaudid po 2-4mg prn and Gabapentin 300mg BID for nerve pain -increased frequency of zofran for postop nausea/vomiting -patient will need a dressing change prior to D/C -disposition likely home in 1-2 days. Quality VTE Deep Vein Thrombosis/Pulmonary Embolism Present on Admission: No
--- NOTE | 2022-06-26 12:58 | PC.NURSE ---
Day shift: Pt tolerating breakfast, lunch and oral intake. No emesis or nausea at this time. Good urine output also. SL at this time (1300). Encouraged to keep drinking water. Call light in reach.
[2022-06-26] MEDS: MAGNESIUM HYDROXIDE 30 ML UDC PO (15:31)
[2022-06-26 16:39] VITALS: BP 120/70; PULSE 91; RESP 17; TEMP 36.1; O2SAT 96
[2022-06-26] MEDS: SENNOSIDES 8.6 MG TABLET 17.2 MG PO (20:08)
[2022-06-26] MEDS: polyethylene glycoL 3350 17 GM POWD.PACK PO (20:08)
[2022-06-26] MEDS: HYDROMORPHONE 2 MG TABLET PO ×2 (20:45→23:26)
[2022-06-26 21:00] VITALS: BP 116/75; PULSE 97; RESP 14; TEMP 36.6; O2SAT 98
[2022-06-27] VITALS (7 sets, daily range): BP systolic 118–135; BP diastolic 69–79; PULSE 92–102; RESP 18; TEMP 36.2–37.1; O2SAT 93–100
[2022-06-27] MEDS: HYDROMORPHONE 2 MG TABLET PO (05:54)
[2022-06-27] MEDS: DOCUSATE 100 MG CAPSULE PO ×2 (07:49→20:26)
[2022-06-27] MEDS: hydrOXYzine pamoate 25 MG CAPSULE PO ×4 (07:49→21:48)
[2022-06-27] MEDS: GABAPENTIN 300 MG CAPSULE PO ×2 (07:49→20:26)
[2022-06-27] MEDS: polyethylene glycoL 3350 17 GM POWD.PACK PO (07:49)
[2022-06-27] MEDS: lisinopriL 20 MG TABLET PO (07:49)
[2022-06-27] MEDS: HYDROMORPHONE 4 MG TABLET PO ×6 (07:50→23:36)
[2022-06-27] MEDS: SODIUM CHLORIDE 0.9% FLUSH 10 ML IV ×2 (07:53→20:32)
[2022-06-27] MEDS: ACETAMINOPHEN 325 MG TABLET 650 MG PO ×4 (08:55→23:35)
--- NOTE | 2022-06-27 09:21 | PT.IPTN ---
Current Diagnoses Spondylolisthesis, lumbar region (06/25/22) Spinal stenosis, lumbar region with neurogenic claudication (06/25/22) Surgery Performed Operation Date: 06/25/22 07:45 Actual Procedures p L3-4, L4-5 TLIF w. posterior instumentation, L5-S1 left hemilaminectomy-Robot - Antonia John MD Physical Therapy Treatment Note M2 PT-IP Current Condition Start: 06/26/22 11:35 Freq: NEEDED Status: Active Protocol: Document 06/26/22 09:36 AB (Rec: 06/26/22 11:55 AB [id number]) Physical Therapy Current Condition Current Condition Evaluation Date 06/26/22 Treatment Diagnosis s/p L3-4, L4-5 TLIF; difficulty in walking Onset Date 06/25/22 M3 PT-IP Subjective Start: 06/26/22 11:35 Freq: NEEDED Status: Active Protocol: Document 06/27/22 09:04 KS (Rec: 06/27/22 12:15 KS [id number]) Subjective Physical Therapy Visit Type Type Treatment Note Visit Start Time 09:04 Visit Stop Time 09:21 Total Visit Minutes 17 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 of 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 1 Physical Therapy Visit Comments Patient Comments agreeable to do PT M4 PT-IP Mobility and Gait Start: 06/26/22 11:35 Freq: NEEDED Status: Active Protocol: Document 06/27/22 09:04 KS (Rec: 06/27/22 12:15 KS [id number]) PT-Bed Mobility Assessment Rolling Type of Rolling Log Rolling Level of Assist Standby Assistance,1 Person Assistance Supine to Sit Supine to Sit Standby Assistance,1 Person Assistance PT-Transfer Assessment Sit to and From Stand Sit to and from Stand Standby Assistance,Use of Upper Extremities Equipment Transfer Assistive Device Gait Belt,Front Wheeled Walker Orthotic/Prosthetic Devices or Brace: No Transfers Transfer Destination Bed,Chair Transfer Technique ambulated w/ FWW Transfer Ability Level of Assist Standby Assistance,1 Person Assistance,Use of Upper Extremities Comments Mobility Comments Pt in bed upon arrival w/ friend in room. Able to recall 3/3 spinal precautions. Pt SBA for logroll and sidelying< >sit. Pt c/o increased pain w/ mobility but able to tolerate . Demonstrated gait belt application to pts friend who he will stay with. Pt sit<> stand w/ FWW SBA w/ cues for hand placement. Pt ambulated ~ 40 ft around room w/ FWW SBA. Pt c/o 8/ pain and returned to sitting EOB but then transferred to chair w/ FWW SBA. Pt left in chair w/ all needs in reach. 40 Gait Assessment Gait Gait Assistance Required: Standby Assistance,1 Person Assist Distance (Feet) 40 Able to Maintain Weight Bearing Status Yes During Gait Assistive Devices Assistive Device Gait Belt,Front Wheeled Walker Orthotic/Prosthetic Devices or Brace: No Gait Deviations General Gait Pattern Antalgic,Decreased Stride Length,Decreased Feet Clearance,Flexed Trunk,Narrow Based Gait,Step-to Gait Factors Limiting Gait Function Factors Limiting Gait Function Decreased Activity Tolerance, Decreased Strength,Limited Range of Motion,Pain,Poor Balance,Poor Safety Awareness Comments Gait Comments Decreased tolerance for ambulation d/t pain, however good use of FWW. Pt has FWW for home use. Stair Climbing Assessment Comments Stair Climbing Comments Not assessed - so steps at home. PT-Balance Assessment Sitting Balance and Reactions Static Sitting Balance Ability Good Dynamic Sitting Balance Ability Good Standing Balance and Reactions Static Standing Balance Ability Good Dynamic Standing Balance Ability Good Device Used FWW M5 PT-IP Objective Assessments Start: 06/26/22 11:35 Freq: NEEDED Status: Active Protocol: Document 06/26/22 12:34 (Rec: 06/26/22 15:52 [id number]) Orientation Orientation/Cognition Level of Alertness Alert Orientation Name,Place,Situation Language Function Ability No Deficits Noted Safety Awareness Decreased Safety Awareness Memory Description No Deficits Noted Coordination Assessment Gross Coordination Gross Coordination WNL Muscle Tone Muscle Tone WNL Yes M6 PT-IP Treatment Start: 06/26/22 11:35 Freq: NEEDED Status: Active Protocol: Document 06/27/22 09:04 KS (Rec: 06/27/22 12:15 KS [id number]) Physical Therapy Treatment Education Education Provided Precautions,Post-Op Packet, Safety M7 PT-IP Assessment and Plan Start: 06/26/22 11:35 Freq: NEEDED Status: Active Protocol: Document 06/27/22 09:04 KS (Rec: 06/27/22 12:15 KS [id number]) PT Summary Assessment and Plan Potential Rehabilitation Potential Good Summary Impairments Pain,ROM,Strength,Balance, Coordination,Bed Mobility, Transfers,Gait,Activity Tolerance Progress Towards Goals Slow Progress due to Pain Assessment Summary Pt SBA for all mobility today and able to tolerate 40 ft ambulation w/ FWW. Pt limited by high level of reported pain , but continues to progress w/ mobility. Pt will benefit from OPPT when appropriate to improve spinal and core stability. Goals Bed Mobility Goal Independent Transfer Goal Independent,Front Wheeled Walker Gait Goal Independent,Front Wheel Walker Gait Distance 200 Days to Meet Goals 5 Frequency of Treatment Frequency Of Treatment Twice a Day Treatment Plan Physical Therapy Treatment Plan Bed Mobility Training,Transfer Training,Gait Training, Therapeutic Exercise,Balance Retraining,Post Op Education, Discharge Planning,Hot or Cold Pack,Neuromuscular Re-ed, Coordination Retraining,Manual Therapy Precautions Lumbar Precautions Log Roll,No Twisting,Limit Bending,Lifting Restriction of 10 lbs,Gait Belt above Incisional Area Recommendations To Nursing Amount of Assist Needed 1 Person Assist Discharge Recommendations PT Discharge Recommendations Home with Assistance, Outpatient PT Equipment Needed for Home Before FWW Discharge Transportation Needs at Discharge Private Vehicle
--- NOTE | 2022-06-27 09:30 | PM.PNPO.1 ---
Subjective Subjective Date Patient Seen: 06/27/22 Time Patient Seen: 09:30 Interval history: Patient is complaining of severe low back pain, moderately well managed with p.o. Dilaudid 2-4 mg every 3 hours. His postop nausea and vomiting has resolved. Patient notes his right lower extremity numbness has resolved since surgery, he is still having persisting left thigh numbness laterally, which is his baseline. He is working with PT and OT. Exam Vital Signs (past 8 hours): - 06/27/22 04:15 06/27/22 07:49 06/27/22 08:31 Temperature 97.1 F L 98.7 F Pulse Rate 96 H 102 H 102 H Respiratory Rate 18 18 Blood Pressure 118/76 135/79 134/79 Pulse Oximetry 97 100 Oxygen Flow Rate 0 0 Oxygen Delivery Method Room Air Oxygen Flow Rate 0 Narrative Exam Narrative: Pleasant 47-year-old male, resting comfortably in bed, no acute distress. Dressings have not been changed and are greater than 50% saturated with serosanguineous drainage. No surrounding erythema or induration. Bilateral lower extremity: Motor functions are grossly intact, sensation is grossly intact to light touch, calves are soft and nontender to palpation. Objective Labs Result Diagrams: 06/26/22 05:50 PFSH Medical History HTN (hypertension) Social History household members: spouse Smoking Status: Never smoker alcohol intake: current Assessment & Plan Post-op Postoperative Procedures: Procedures Operation Date: 06/25/22 07:45 Actual Procedure Side Surgeon p L3-4, L4-5 TLIF w. posterior instumentation, L5-S1 left hemilaminectomy-Robot Antonia John MD Postoperative day: 2 Postoperative status: marginal pain control Postoperative status narrative: -marginal pain control status post L3-4, L4-5 TLIF, L5-S1 left hemilaminectomy Postoperative plan narrative: -mobilize with PT/OT. Limit bending, lifting, twisting x6 weeks. Weightbearing as tolerated -continue with multimodal pain management. Change Tylenol to scheduled instead of as needed -DC home likely tomorrow. Patient will need specific discharge instructions about returning to work Quality VTE Deep Vein Thrombosis/Pulmonary Embolism Present on Admission: No
--- NOTE | 2022-06-27 09:41 | OT.IPNOTE ---
Spoke to pt regarding OT needs, pt and his caregiver have no further questions and needs. Pt states now using the bathroom on his own. Therefore discharge from OT services.
--- NOTE | 2022-06-27 13:31 | PT.IPTN ---
Current Diagnoses Spondylolisthesis, lumbar region (06/25/22) Spinal stenosis, lumbar region with neurogenic claudication (06/25/22) Surgery Performed Operation Date: 06/25/22 07:45 Actual Procedures p L3-4, L4-5 TLIF w. posterior instumentation, L5-S1 left hemilaminectomy-Robot - Antonia John MD Physical Therapy Treatment Note M2 PT-IP Current Condition Start: 06/26/22 11:35 Freq: NEEDED Status: Active Protocol: Document 06/26/22 09:36 AB (Rec: 06/26/22 11:55 AB [id number]) Physical Therapy Current Condition Current Condition Evaluation Date 06/26/22 Treatment Diagnosis s/p L3-4, L4-5 TLIF; difficulty in walking Onset Date 06/25/22 M3 PT-IP Subjective Start: 06/26/22 11:35 Freq: NEEDED Status: Active Protocol: Document 06/27/22 13:20 KS (Rec: 06/27/22 14:12 KS [id number]) Subjective Physical Therapy Visit Type Type Treatment Note Visit Start Time 13:20 Visit Stop Time 13:31 Total Visit Minutes 11 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 of 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 2 Physical Therapy Visit Comments Patient Comments agreeable to do PT M4 PT-IP Mobility and Gait Start: 06/26/22 11:35 Freq: NEEDED Status: Active Protocol: Document 06/27/22 13:20 KS (Rec: 06/27/22 14:12 KS [id number]) PT-Bed Mobility Assessment Rolling Type of Rolling Log Rolling Level of Assist Standby Assistance,1 Person Assistance Supine to Sit Supine to Sit Standby Assistance,1 Person Assistance Sit to Supine Sit to Supine Standby Assistance Scooting Scooting to Edge of Bed Standby Assistance PT-Transfer Assessment Sit to and From Stand Sit to and from Stand Standby Assistance,Use of Upper Extremities Equipment Transfer Assistive Device Gait Belt,Front Wheeled Walker Orthotic/Prosthetic Devices or Brace: No Transfers Transfer Destination Bed Transfer Technique ambulated w/ FWW Transfer Ability Level of Assist Standby Assistance,1 Person Assistance,Use of Upper Extremities Comments Mobility Comments Pt in bed upon arrival and requesting to use bathroom. SBA for sup<>sit and scooting EOB. After using bathroom, pt ambulated ~600 ft w/ FWW SBA w / min cues for upright posture . He did ambulate ~20 ft w/o AD but was slightly unstable and had increased pain. Pt returned to room and bed SBA. Left in bed w/ all needs in reach. Gait Assessment Gait Gait Assistance Required: Standby Assistance,1 Person Assist Distance (Feet) 600 Able to Maintain Weight Bearing Status Yes During Gait Assistive Devices Assistive Device Gait Belt,Front Wheeled Walker Orthotic/Prosthetic Devices or Brace: No Gait Deviations General Gait Pattern Decreased Feet Clearance, Flexed Trunk,Narrow Based Gait Factors Limiting Gait Function Factors Limiting Gait Function Pain Comments Gait Comments Improved tolerance for ambulation w/ FWW ~600 ft SBA. Stair Climbing Assessment Comments Stair Climbing Comments Not assessed - so steps at home. PT-Balance Assessment Sitting Balance and Reactions Static Sitting Balance Ability Good Dynamic Sitting Balance Ability Good Standing Balance and Reactions Static Standing Balance Ability Good Dynamic Standing Balance Ability Good Device Used FWW M5 PT-IP Objective Assessments Start: 06/26/22 11:35 Freq: NEEDED Status: Active Protocol: Document 06/26/22 12:34 (Rec: 06/26/22 15:52 [id number]) Orientation Orientation/Cognition Level of Alertness Alert Orientation Name,Place,Situation Language Function Ability No Deficits Noted Safety Awareness Decreased Safety Awareness Memory Description No Deficits Noted Coordination Assessment Gross Coordination Gross Coordination WNL Muscle Tone Muscle Tone WNL Yes M6 PT-IP Treatment Start: 06/26/22 11:35 Freq: NEEDED Status: Active Protocol: Document 06/27/22 13:20 KS (Rec: 06/27/22 14:12 KS [id number]) Physical Therapy Treatment Education Education Provided Precautions,Post-Op Packet, Safety Other Treatments Other Treatment Performed Discussed OPPT M7 PT-IP Assessment and Plan Start: 06/26/22 11:35 Freq: NEEDED Status: Active Protocol: Document 06/27/22 13:20 KS (Rec: 06/27/22 14:12 KS [id number]) PT Summary Assessment and Plan Potential Rehabilitation Potential Good Summary Impairments Pain,ROM,Strength,Balance, Coordination,Bed Mobility, Transfers,Gait,Activity Tolerance Progress Towards Goals Slow Progress due to Pain Assessment Summary Pt progressing well w/ mobility this PM. He continues to require only SBA for all mobility and was able to tolerate ~600 ft ambulation w/ FWW and ~20 ft ambulation w/o AD although was slightly unsteady and w/ increased pain . Pt agreeable to use FWW at home. He will benefit from OPPT when appropriate to improve stability and mobility . Goals Bed Mobility Goal Independent Transfer Goal Independent,Front Wheeled Walker Gait Goal Independent,Front Wheel Walker Gait Distance 200 Days to Meet Goals 5 Frequency of Treatment Frequency Of Treatment Twice a Day Treatment Plan Physical Therapy Treatment Plan Bed Mobility Training,Transfer Training,Gait Training, Therapeutic Exercise,Balance Retraining,Post Op Education, Discharge Planning,Hot or Cold Pack,Neuromuscular Re-ed, Coordination Retraining,Manual Therapy Precautions Lumbar Precautions Log Roll,No Twisting,Limit Bending,Lifting Restriction of 10 lbs,Gait Belt above Incisional Area Recommendations To Nursing Amount of Assist Needed 1 Person Assist Discharge Recommendations PT Discharge Recommendations Home with Assistance, Outpatient PT Equipment Needed for Home Before FWW - pt states able to Discharge acquire. Transportation Needs at Discharge Private Vehicle
[2022-06-27] MEDS: SENNOSIDES 8.6 MG TABLET 17.2 MG PO (20:26)
[2022-06-28 00:02] VITALS: BP 124/67; PULSE 97; RESP 17; TEMP 36.2; O2SAT 93
[2022-06-28] MEDS: HYDROMORPHONE 4 MG TABLET PO ×2 (02:18→05:52)
[2022-06-28] MEDS: hydrOXYzine pamoate 25 MG CAPSULE PO (02:18)
[2022-06-28 05:22] VITALS: BP 125/66; PULSE 88; RESP 18; TEMP 36.4; O2SAT 96
[2022-06-28] MEDS: ACETAMINOPHEN 325 MG TABLET 650 MG PO ×2 (05:53→11:59)
[2022-06-28 09:00] VITALS: BP 134/69; PULSE 81; RESP 16; TEMP 36.6; O2SAT 95
[2022-06-28] MEDS: DOCUSATE 100 MG CAPSULE PO (09:15)
[2022-06-28 09:16] VITALS: BP 134/69; PULSE 81
[2022-06-28] MEDS: GABAPENTIN 300 MG CAPSULE PO (09:16)
[2022-06-28] MEDS: lisinopriL 20 MG TABLET PO (09:16)
[2022-06-28] MEDS: HYDROMORPHONE 2 MG TABLET PO ×2 (09:23→12:53)
[2022-06-28] MEDS: SODIUM CHLORIDE 0.9% FLUSH 10 ML IV (09:24)
--- NOTE | 2022-06-28 09:40 | PT.IPTN ---
Current Diagnoses Spondylolisthesis, lumbar region (06/25/22) Spinal stenosis, lumbar region with neurogenic claudication (06/25/22) Surgery Performed Operation Date: 06/25/22 07:45 Actual Procedures p L3-4, L4-5 TLIF w. posterior instumentation, L5-S1 left hemilaminectomy-Robot - Antonia John MD Physical Therapy Treatment Note M2 PT-IP Current Condition Start: 06/26/22 11:35 Freq: NEEDED Status: Active Protocol: Document 06/26/22 09:36 AB (Rec: 06/26/22 11:55 AB [id number]) Physical Therapy Current Condition Current Condition Evaluation Date 06/26/22 Treatment Diagnosis s/p L3-4, L4-5 TLIF; difficulty in walking Onset Date 06/25/22 M3 PT-IP Subjective Start: 06/26/22 11:35 Freq: NEEDED Status: Active Protocol: Document 06/28/22 09:28 KS (Rec: 06/28/22 11:31 KS [id number]) Subjective Physical Therapy Visit Type Type Treatment Note Visit Start Time 09:28 Visit Stop Time 09:40 Total Visit Minutes 12 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 of 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 3 Physical Therapy Visit Comments Patient Comments agreeable to do PT M4 PT-IP Mobility and Gait Start: 06/26/22 11:35 Freq: NEEDED Status: Active Protocol: Document 06/28/22 09:28 KS (Rec: 06/28/22 11:31 KS [id number]) PT-Bed Mobility Assessment Rolling Type of Rolling Log Rolling Level of Assist Independent Supine to Sit Supine to Sit Independent Sit to Supine Sit to Supine Independent Scooting Scooting to Edge of Bed Independent PT-Transfer Assessment Sit to and From Stand Sit to and from Stand Standby Assistance,Use of Upper Extremities Equipment Transfer Assistive Device Gait Belt,Front Wheeled Walker Orthotic/Prosthetic Devices or Brace: No Transfers Transfer Destination Bed Transfer Technique ambulated w/ FWW Transfer Ability Level of Assist Independent,Standby Assistance ,1 Person Assistance,Use of Upper Extremities Comments Mobility Comments Pt in bed upon arrival and agreeable to ambulation. Pt able to recall 3/3 spinal precautions and perform bed mobility independently. Pt SBA for sit<>stand w/o AD, but then did use FWW to ambulate into bathroom. Used bathroo independently and then ambulated additional 400 ft w/ FWW SBA. Pt had no LOB and demonstrated safe and proper use of FWW. He then returned to room and bed. Spoke w/ RN and communicated pt safe to mobilize independently in room . Gait Assessment Gait Gait Assistance Required: Independent,Standby Assistance ,1 Person Assist Distance (Feet) 400 Able to Maintain Weight Bearing Status Yes During Gait Assistive Devices Assistive Device Gait Belt,Front Wheeled Walker Orthotic/Prosthetic Devices or Brace: No Gait Deviations General Gait Pattern Narrow Based Gait Factors Limiting Gait Function Factors Limiting Gait Function Pain Comments Gait Comments Please see mobility section for details. Stair Climbing Assessment Comments Stair Climbing Comments Not assessed - so steps at home. PT-Balance Assessment Sitting Balance and Reactions Static Sitting Balance Ability Good Dynamic Sitting Balance Ability Good Standing Balance and Reactions Static Standing Balance Ability Good Dynamic Standing Balance Ability Good Device Used FWW M5 PT-IP Objective Assessments Start: 06/26/22 11:35 Freq: NEEDED Status: Active Protocol: Document 06/26/22 12:34 (Rec: 06/26/22 15:52 [id number]) Orientation Orientation/Cognition Level of Alertness Alert Orientation Name,Place,Situation Language Function Ability No Deficits Noted Safety Awareness Decreased Safety Awareness Memory Description No Deficits Noted Coordination Assessment Gross Coordination Gross Coordination WNL Muscle Tone Muscle Tone WNL Yes M6 PT-IP Treatment Start: 06/26/22 11:35 Freq: NEEDED Status: Active Protocol: Document 06/28/22 09:28 KS (Rec: 06/28/22 11:31 KS [id number]) Physical Therapy Treatment Education Education Provided Precautions,Post-Op Packet, Safety Other Treatments Other Treatment Performed Discussed OPPT M7 PT-IP Assessment and Plan Start: 06/26/22 11:35 Freq: NEEDED Status: Active Protocol: Document 06/28/22 09:28 KS (Rec: 06/28/22 11:31 KS [id number]) PT Summary Assessment and Plan Potential Rehabilitation Potential Good Summary Impairments Pain,ROM,Strength,Balance, Coordination,Bed Mobility, Transfers,Gait,Activity Tolerance Progress Towards Goals Progressing Toward Goals Assessment Summary Pt still reporting higher levels of pain, but is still able to mobilize mostly independently. He ambulated ~ 400 ft w/ FWW. He feels safe to go home as long as pain is managed. Pt safe to be d/c from acute PT and feels he has no further needs. He will benefit from OPPT when appropriate to improve stability and mobility . Goals Bed Mobility Goal Independent Transfer Goal Independent,Front Wheeled Walker Gait Goal Independent,Front Wheel Walker Gait Distance 200 Days to Meet Goals 5 Frequency of Treatment Frequency Of Treatment Twice a Day Treatment Plan Physical Therapy Treatment Plan Bed Mobility Training,Transfer Training,Gait Training, Therapeutic Exercise,Balance Retraining,Post Op Education, Discharge Planning,Hot or Cold Pack,Neuromuscular Re-ed, Coordination Retraining,Manual Therapy Precautions Lumbar Precautions Log Roll,No Twisting,Limit Bending,Lifting Restriction of 10 lbs,Gait Belt above Incisional Area Recommendations To Nursing Amount of Assist Needed 1 Person Assist Discharge Recommendations PT Discharge Recommendations Home with Assistance, Outpatient PT Transportation Needs at Discharge Private Vehicle
--- NOTE | 2022-06-28 11:13 | PC.NURSE ---
Addendum entered by Hunter Dobson R.N. 06/28/22 14:04: 13:40 Pt given discharge instructions, IV d/c'd intact. Pt escorted to car via w/c by Kindra JOSE. Original Note: Pt up with PT. PO pain meds doing well. Pt walking well with walker. Up to shower. Anticipating home today.
--- NOTE | 2022-06-28 11:36 | PM.DS.1 ---
History of Present Illness History of Present Illness Date Patient Seen: 06/28/22 Time Patient Seen: 11:36 Chief complaint: LBP s/p L3-4, L4-5 TLIF, L5-S1 hemilaminectomy Narrative: Patient is complaining of moderate to severe low back pain this morning. The oral Dilaudid is helping. He notes his left lateral thigh numbness is slowly improving with walking. His right thigh and leg numbness has resolved. Overall he is feeling well and would like to be discharged home today. Discharge Providers Provider Date of admission: 06/25/22 06:05 Discharge Date: 06/28/22 Primary care physician: Florentino LEGER Provider Consults: 06/25/22 14:56 Consult to Occupational Therapy Evaluate & Treat Comment: Physician Instructions: Evaluate and treat Consult to Physical Therapy Evaluate & Treat Comment: Physician Instructions: Evaluate and Treat Discharge provider: Genny Castro PA-C Summary Hospital Course Discharge Diagnosis: 1. L3-4, L4-5, L5-S1 spinal stenosis with epidural lipomatosis 2. L4-5 spondylolisthesis 3. L3-S1 spondylosis with radiculopathy Hospital Course: Operative Date/Time/Diagnoses Date of procedure: 06/25/22 Time of procedure: 07:45 Procedure & Clinicians Procedure: 1. L3-4, L4-5 Postero-lateral and posterior interbody fusion 2. L3-4, L4-5 interbody cage placement. 3.L3-4, L4-5 decompressive laminectomy with bilateral facetecomies 4. L3-4, L4-5 Posterior segmental instrumentation 5. L5-S1 left hemilaminectomy 6. Grapevine of bone marrow from iliac crest 7. Utilization of microsurgical technique and operating microscope 8. Utilization of robotic assisted navigation Same procedure as scheduled: Yes Indications: Patient has been having chronic back pain and worsening lumbar radiculopathy. Patient failed multiple conservative management with worsening pain weakness and numbness in his lower extremity.? Patient has been having difficulty performing activity of daily living.? After discussing risks benefits of treatment options, patient elected proceed with surgery. Surgeon: Antonia John Magician/Illusionist: Genny Castro Click Yes if Unassisted: Yes Anesthesia Type: General Operative Notes Closure Type: primary Specimen(s): none sent Prosthetic devices, grafts, tissues, transplants, or devices: Globus CREO MIS screws, Rise cages Applied: catheter Estimated Blood Loss (mL): 400 Blood products transfused: none Status at Discharge Cognitive/behavioral status at discharge: at baseline, oriented Overall status at discharge: patient is progressing back to baseline Exam Vital Signs (past 8 hours): - 06/28/22 05:22 06/28/22 09:00 06/28/22 09:16 Temperature 97.5 F L 97.8 F Pulse Rate 88 81 81 Respiratory Rate 18 16 Blood Pressure 125/66 134/69 134/69 Pulse Oximetry 96 95 Oxygen Flow Rate 0 0 Oxygen Delivery Method Room Air Oxygen Flow Rate 0 Narrative Exam Narrative: Pleasant 47-year-old male, resting comfortably in bed, no acute distress. Dressing demonstrates old dried blood, no surrounding erythema or induration. Bilateral lower extremity: Motor functions are grossly intact, sensation is grossly intact to light touch, calves are soft and nontender to palpation. Objective Labs Result Diagrams: 06/26/22 05:50 [facility] Medical History HTN (hypertension) Social History household members: spouse Smoking Status: Never smoker alcohol intake: current Discharge Assessment & Plan Assessment and Plan Assessment: Stable status post L3-4, L4-5 TLIF, L5-S1 hemilaminectomy left -marginal pain control, improving Plan of Treatment: Mobilize with PT/OT. No bending lifting twisting x6 weeks. -continue with multimodal pain management -DC home once cleared by PT -follow-up with Dr. John in 10-14 days for postoperative visit Discharge Plan Discharge Plan Patient Disposition: Home Discharge orders & Medications Prescriptions: New acetaminophen 500 mg capsule 500 mg PO Q4H MDD Max 3000 mg per day PRN (Reason: pain (scale score 1-3)) Qty: 90 0RF docusate sodium 100 mg Capsule 100 mg PO BID PRN (Reason: Constipation from narcotic pain meds) Qty: 30 0RF gabapentin [Neurontin] 300 mg Capsule 300 mg PO BID Qty: 60 0RF Rx Instructions: For nerve pain hydromorphone 2 mg Tablet See Rx Instructions .ROUTE .COMPLEX PRN (Reason: Pain, Moderate (4-6)) Qty: 60 0RF Rx Instructions: Take 1-2 tablets by mouth every 3 hours as needed for moderate to severe pain hydroxyzine pamoate 25 mg Capsule 25 mg PO Q4HR PRN (Reason: Muscle spasm/pain/nausea) Qty: 60 0RF polyethylene glycol 3350 17 gram Powder In Packet 17 g PO BID PRN (Reason: constipation) Qty: 30 0RF sennosides [senna] 8.6 mg Tablet 17.2 mg PO BEDTIME PRN (Reason: constipation) Qty: 30 0RF Continued lisinopril 20 mg tablet 20 mg PO DAILY Follow up/Referrals: Provider,Florentino LEGER [Primary Care Provider] - Antonia John MD [Physician] - (10-14 days for postoperative visit) Diet/Activity/Treatments Diet: Diet as Tolerated Other treatments: Medications: -OTC Tylenol 500 mg 1 tablet every 4 hours as needed for pain/fever. Max 6 tablets per day. -Dilaudid 2 mg take 1-2 tablets every 3-4 hours as needed for moderate-severe pain (narcotic pain medication). -As needed medications: -Ducolax and /or MiraLax as needed for constipation from narcotic pain medications. -Pepcid AC as needed for stomach upset. -Vistaril (hydroxyine) 25mg 1 tab every 4 hours as needed for spasms/pain/nausea. Dressing/Wound care: -Keep dressing in place until postoperative follow-up office visit. -Okay to shower. Keep wound out of direct water stream. Can use PressNSeal plastic wrap to protect from shower stream. No soaking or submerging until all the scabs fall off (approximately 6 weeks). -Please call the office if dressing becomes wet, soiled, or saturated. Activities: -Limit bending, lifting, twisting x6 weeks. No deep bending (more than 90 degrees) or twisting at the waist. No lifting > 20 pounds. -Walk frequently. -Weight-bearing as tolerated. Use front wheeled walker, and progress to cane when safe. -Continue with home exercises as directed by your physical therapist. -Ice your incision as needed for pain/inflammation/swelling. Protect your skin with a folded pillowcase. -Incentive Spirometer (breathing device from hospital): 5-10xs every hour while awake for the first 1-2 weeks. Follow-up: -Follow-up with your surgeon or PA in the office in 10-14 days after surgery. -Follow-up with your surgeon 6 weeks postoperatively. Call the office if you have chest pain, shortness of breath, significant swelling that will not resolve with elevating, fever over 101?, significantly worsening pain, or are concerned you might need to go to the Emergency Room. [facility]: [phone] Skin/Wound/Dressing Care Report to your healthcare provider any signs of infection, such as:: chills, fever, night sweats, unusual drainage and unusual redness Visit Report/Discharge Packet Instructions: DI for Prescription Opioid Use, DI for Transforaminal Lumbar Interbody Fusion Stand Alone Forms: Surgery Discharge Discharge Data Primary Care Provider: Florentino Montano VTE Deep Vein Thrombosis/Pulmonary Embolism Present on Admission: No
[2022-06-28 13:00] VITALS: BP 147/81; PULSE 91; RESP 18; TEMP 36.6; O2SAT 99
--- NOTE | 2022-06-28 13:38 | CM.DPC ---
DCP Cont: Per MD, pt is medically stable for discharge. No discharge needs required. Pt to discharge home via friend POV. Nona Lynn RN/DCP
== END 2022-06-28 13:40 | disposition home or self-care (01) | DRG 455 ==
PROVIDERS: Admitting Provider Orthopaedic Surgery Orthopaedic Surgery of the Spine; Referring Provider Orthopaedic Surgery Orthopaedic Surgery of the Spine; Visit Provider Orthopaedic Surgery Orthopaedic Surgery of the Spine
PROC: 0SG10AJ Fusion of 2 or more Lumbar Vertebral Joints with Interbody Fusion Device, Posterior Approach, Anterior Column, Open Approach (ICD-10-PCS; principal; 2022-06-25 07:45)
DX: M48.062 Spinal stenosis, lumbar region with neurogenic claudication (principal); M43.06 Spondylolysis, lumbar region; M48.07 Spinal stenosis, lumbosacral region; E88.2 Lipomatosis, not elsewhere classified; M47.27 Other spondylosis with radiculopathy, lumbosacral region; R11.2 Nausea with vomiting, unspecified; I10 Essential (primary) hypertension; Z20.822 Contact with and (suspected) exposure to COVID-19
CPT/HCPCS: 36415; 72100; 76000; 82962; 85014; 85018; 97110; 97116; 97162; 97165; 97530; 97535; C1713; C1831; C9290; J0171; J1170; J2250; J2405; J2704; J3010

== ENCOUNTER 2023-03-19 17:43 | Inpatient (IN) | payer OTHER, SELFPAY ==
[2022-06-25 15:05] VITALS: BMI 32.7
[2023-03-19 18:09] VITALS: BP 156/98; PULSE 80; RESP 16; TEMP 37.1; O2SAT 97; BMI 33.0
--- NOTE | 2023-03-19 18:13 | DI.RAD.S_ITS ---
PROCEDURE: XR TOE RT MIN 2V INDICATIONS: possible osteomyelitis, fracture TECHNIQUE: 3 views of the 3rd toe(s) acquired. COMPARISON: None. FINDINGS: Bones: There is a comminuted fracture within the mid and distal aspect of the 3rd distal phalanx. There is displacement of fracture fragments. There is loss of mineralization within fragments particularly within the midportion of the fracture. There is disruption of the distal cortex. Soft tissues: No suspicious soft tissue densities. IMPRESSION: Comminuted fracture within the 3rd distal phalanx with displacement of fracture fragments. Loss of mineralization within several of the fragments particularly within the midportion of the fracture, as well as disruption of the distal cortex. Overall appearance is suspicious for superimposed osteomyelitis. Dictated by: Brinda Falcon M.D. on 03/19/2023 at 18:50 Approved by: Brinda Falcon M.D. on 03/19/2023 at 18:51
--- NOTE | 2023-03-19 18:28 | ED.EXTPRO ---
HPI - Extremity Problem <Estuardo Sin PA-C - Last Filed: 03/19/23 20:06> General Chief complaint: Extremity Problem,Nontraumatic Stated complaint: Infected toe, Thinks sepsis Time Seen by Provider: 03/19/23 18:16 Source: patient Mode of arrival: Ambulatory History of Present Illness HPI Narrative: This is a 48-year-old male presents to the emergency department due to right 3rd toe pain. He states that he initially dropped a log on it about 3 weeks ago while camping. He was seen by his [employer] [facility] doctors earlier today who told him he had a fractured toe but sent him here for further evaluation and management as they were concerned for infection. Patient denies being a diabetic but does state he has a history of hypertension. He is not been treated with any antibiotics as of this visit. Reports continued pain to the toe as well as subjective fever and chills. Denies any spreading erythema from the toe. Related Data Home Medications Medication Instructions Recorded Confirmed lisinopril 20 mg tablet 40 mg PO DAILY 11/15/19 03/19/23 Previous Rx's Medication Instructions Recorded acetaminophen 500 mg capsule 500 mg PO Q4H PRN pain (scale 06/28/22 score 1-3) #90 caps docusate sodium 100 mg capsule 100 mg PO BID PRN Constipation 06/28/22 from narcotic pain meds #30 caps gabapentin 300 mg capsule 300 mg PO BID #60 caps 06/28/22 (Neurontin) hydromorphone 2 mg tablet See Rx Instructions .Route 06/28/22 .COMPLEX PRN Pain, Moderate (4-6) #60 tabs hydroxyzine pamoate 25 mg capsule 25 mg PO Q4HR PRN Muscle 06/28/22 spasm/pain/nausea #60 caps polyethylene glycol 3350 17 gram 17 g PO BID PRN constipation #30 ea 06/28/22 oral powder packet sennosides 8.6 mg tablet (senna) 17.2 mg PO BEDTIME PRN 06/28/22 constipation #30 tabs Allergies Allergy/AdvReac Type Severity Reaction Status Date / Time Penicillins Allergy Severe Anaphylaxis Verified 03/19/23 18:13 Review of Systems <Estuardo Sin PA-C - Last Filed: 03/19/23 20:06> Review of Systems Narrative: GENERAL: Denies chills, fatigue, malaise, fever, sweats. HEENT: Denies sinus pain, ear pain, sore throat, difficulty swallowing, dizziness. RESPIRATORY: Denies dyspnea, cough, wheezing, hemoptysis, sputum. CARDIOVASCULAR: Denies chest pain, palpitations, orthopnea, edema, GASTROINTESTINAL: Denies nausea, vomiting, abdominal pain, diarrhea, constipation, melena. : Denies dysuria, frequency, incontinence, hematuria, urinary retention. MUSCULOSKELETAL: Right 3rd toe pain, otherwise denies weakness, joint pain, or bony pain SKIN: Open wound to right 3rd toe NEUROLOGIC: Denies weakness, headache, numbness, change in speech, confusion, seizures, incoordination. PSYCHIATRIC: No concerning psychosocial issues. 12 point review of systems is negative except for those stated above Patient History <Estuardo Sin PA-C - Last Filed: 03/19/23 20:06> Medical History HTN (hypertension) Social History household members: spouse Smoking Status: Never smoker alcohol intake: current Smoking Status: Never smoker alcohol intake frequency: a few times a week Substance Use Type: does not use Exam <Estuardo Sin PA-C - Last Filed: 03/19/23 20:06> Narrative Exam Narrative: GENERAL: Well-developed patient, in mild distress. HEAD: Atraumatic. Normocephalic. EYES: Pupils equal round and reactive. Extraocular motions intact. No scleral icterus. No injection or drainage. ENT: Nose without bleeding, purulent drainage. Throat without erythema, tonsillar hypertrophy or exudate. Airway patent. NECK: Trachea midline. Non tender CARDIOVASCULAR: Regular rate and rhythm without murmurs, gallops, or rubs. RESPIRATORY: Clear to auscultation. Breath sounds equal bilaterally. No wheezes, rales, or rhonchi. GASTROINTESTINAL: Abdomen soft, non-tender, nondistended. EXTREMITIES: No edema or joint tenderness. Other than what as noted below. BACK: Nontender without deformity or crepitance. No flank tenderness. NEURO: AOx3. SKIN: Open wound to the dorsal aspect of the right 3rd toe. Erythema around the toe as well as tenderness with palpation. Some purulent discharge noted to be coming from the open wound, no spreading erythema of the dorsum of the foot. Initial Vital Signs Initial Vital Signs: Vital Signs Temperature 98.7 F 03/19/23 18:09 Pulse Rate 80 03/19/23 18:09 Respiratory Rate 16 03/19/23 18:09 Blood Pressure 156/98 H 03/19/23 18:09 Pulse Oximetry 97 03/19/23 18:09 Oxygen Delivery Method Room Air 03/19/23 18:09 <Virgen Santacruz DO - Last Filed: 03/20/23 08:29> Initial Vital Signs Initial Vital Signs: Vital Signs Temperature 98.7 F 03/19/23 18:09 Pulse Rate 80 03/19/23 18:09 Respiratory Rate 16 03/19/23 18:09 Blood Pressure 156/98 H 03/19/23 18:09 Pulse Oximetry 97 03/19/23 18:09 Oxygen Delivery Method Room Air 03/19/23 18:09 Course <Estuardo Sin PA-C - Last Filed: 03/19/23 20:06> Orders Ordered: ED Orders 03/20/23 05:40 Complete Blood Count AUTO DIFF Routine Comprehensive Metabolic Panel Routine Acetaminophen (Acetaminophen 325 Mg Tablet) 650 mg PO Q6H PRN PRN Reason: Fever/Mild Pain (1-3) Hydrocodone Bitart/Acetaminophen (Hydrocodone/Acet 5/325 Tablet) 1 tab PO Q4H PRN PRN Reason: Pain, Moderate (4-6) Last Admin: 03/20/23 05:21 Dose: 1 tab Documented By: Admin: 03/20/23 01:46 Dose: 1 tab Documented By: CHASTITY Enoxaparin Sodium (Enoxaparin 40 Mg/0.4 Ml Syringe) 40 mg SUBCUT DAILY [facility] Levofloxacin (Levaquin) 750 mg in 150 mls @ 100 mls/hr IV Q24H [facility] Last Infusion: 03/19/23 23:17 Dose: 0 mls/hr Documented By: Admin: 03/19/23 21:07 Dose: 100 mls/hr Documented By: CHASTITY Lactated Ringer's (Lactated Ringers) 1,000 mls @ 100 mls/hr IV CONT [facility] Last Admin: 03/20/23 02:07 Dose: 100 mls/hr Documented By: CHASTITY Labetalol HCl (Labetalol 20 Mg/4 Ml Syringe) 10 mg IV Q5MIN PRN PRN Reason: SBP >180 or DBP >110 Lisinopril (Lisinopril 20 Mg Tablet) 40 mg PO DAILY [facility] Last Admin: 03/20/23 08:11 Dose: 40 mg Documented By: HCW Naloxone HCl (Naloxone 0.4 Mg/Ml Vial) 0.2 mg IV Q2MIN PRN PRN Reason: Opiate Reversal Ondansetron HCl (Ondansetron 4 Mg/2 Ml Inj) 4 mg IV Q8HR PRN PRN Reason: Nausea And Vomiting Discontinued Medications Vancomycin HCl (Vancomycin) 1,000 mg in 200 mls @ 200 mls/hr IV NOW ONE Stop: 03/19/23 20:31 Last Admin: 03/19/23 23:11 Dose: 200 mls/hr Documented By: CS Ciprofloxacin (Cipro) 400 mg in 200 mls @ 200 mls/hr IV NOW ONE Stop: 03/19/23 20:34 Last Admin: 03/20/23 07:30 Dose: Not Given Documented By: HCW Vital Signs Vital signs: Vital Signs - 8 hr 03/19/23 18:09 03/19/23 19:53 Temperature 98.7 F Pulse Rate 80 84 Respiratory Rate 16 19 Blood Pressure 156/98 H 153/92 H Pulse Oximetry 97 97 Oxygen Delivery Method Room Air Room Air <Virgen Santacruz DO - Last Filed: 03/20/23 08:29> Orders Ordered: ED Orders 03/20/23 05:40 Complete Blood Count AUTO DIFF Routine Comprehensive Metabolic Panel Routine Acetaminophen (Acetaminophen 325 Mg Tablet) 650 mg PO Q6H PRN PRN Reason: Fever/Mild Pain (1-3) Hydrocodone Bitart/Acetaminophen (Hydrocodone/Acet 5/325 Tablet) 1 tab PO Q4H PRN PRN Reason: Pain, Moderate (4-6) Last Admin: 03/20/23 05:21 Dose: 1 tab Documented By: Admin: 03/20/23 01:46 Dose: 1 tab Documented By: CHASTITY Enoxaparin Sodium (Enoxaparin 40 Mg/0.4 Ml Syringe) 40 mg SUBCUT DAILY [facility] Levofloxacin (Levaquin) 750 mg in 150 mls @ 100 mls/hr IV Q24H [facility] Last Infusion: 03/19/23 23:17 Dose: 0 mls/hr Documented By: Admin: 03/19/23 21:07 Dose: 100 mls/hr Documented By: CHASTITY Lactated Ringer's (Lactated Ringers) 1,000 mls @ 100 mls/hr IV CONT [facility] Last Admin: 03/20/23 02:07 Dose: 100 mls/hr Documented By: CHASTITY Labetalol HCl (Labetalol 20 Mg/4 Ml Syringe) 10 mg IV Q5MIN PRN PRN Reason: SBP >180 or DBP >110 Lisinopril (Lisinopril 20 Mg Tablet) 40 mg PO DAILY [facility] Last Admin: 03/20/23 08:11 Dose: 40 mg Documented By: HCW Naloxone HCl (Naloxone 0.4 Mg/Ml Vial) 0.2 mg IV Q2MIN PRN PRN Reason: Opiate Reversal Ondansetron HCl (Ondansetron 4 Mg/2 Ml Inj) 4 mg IV Q8HR PRN PRN Reason: Nausea And Vomiting Discontinued Medications Vancomycin HCl (Vancomycin) 1,000 mg in 200 mls @ 200 mls/hr IV NOW ONE Stop: 03/19/23 20:31 Last Admin: 03/19/23 23:11 Dose: 200 mls/hr Documented By: CHASTITY Ciprofloxacin (Cipro) 400 mg in 200 mls @ 200 mls/hr IV NOW ONE Stop: 03/19/23 20:34 Last Admin: 03/20/23 07:30 Dose: Not Given Documented By: HCW Vital Signs Vital signs: Vital Signs - 8 hr 03/19/23 18:09 03/19/23 19:53 Temperature 98.7 F Pulse Rate 80 84 Respiratory Rate 16 19 Blood Pressure 156/98 H 153/92 H Pulse Oximetry 97 97 Oxygen Delivery Method Room Air Room Air MDM - Extremity (Nontraumatic) <Estuardo Sin PA-C - Last Filed: 03/19/23 20:06> Lab Data 03/20/23 05:40 03/20/23 05:40 Labs: Lab Results 03/19/23 03/19/23 03/19/23 Range/Units 19:30 19:30 19:30 WBC 6.8 (4.5-11.0) X10^3/uL RBC 4.88 (4.5-5.9) X10^6/uL Hgb 15.5 (13.5-17.5) g/dL Hct 44.4 (41-53) % MCV 91.0 (80-100) fL MCH 31.8 (26-34) PG MCHC 35.0 (30-36) % RDW 13.7 (11.6-14.8) % Plt Count 182 (150-400) X10^3/uL Neut % (Auto) 66.6 (50-75) % Lymph % (Auto) 21.7 L (25-40) % Price % (Auto) 9.8 (3-14) % Eos % (Auto) 0.6 L (2-4) % Baso % (Auto) 1.3 (0-2) % Neut # (Auto) 4500 (8370-1588) /uL Lymph # (Auto) 1500 (7189-5646) /uL Price # (Auto) 700 (0-900) /uL Eos # (Auto) 0 (0-450) /uL Baso # (Auto) 100 (0-100) /uL ESR 4 (0-15) MM/HR Sodium 136 L (137-145) mmol/L Potassium 4.0 (3.4-5.1) mmol/L Chloride 98 (98-107) mmol/L Carbon Dioxide 23 (22-32) mmol/L BUN 11 (9-20) mg/dL Creatinine 0.67 (0.66-1.25) mg/dL Estimated GFR > 60 (>60) mL/min BUN/Creatinine Ratio 16.4 (6-22) Glucose 113 H (70-100) mg/dL Lactate 1.8 (0.7-2.1) mmol/L Calcium 9.6 (8.4-10.2) mg/dL Total Bilirubin 2.9 H (0.2-1.3) mg/dL AST 168 H (17-59) IU/L ALT 156 H (<50) IU/L Alkaline Phosphatase 112 (38-126) U/L C-Reactive Protein < 0.5 (<1.0) mg/dL Total Protein 8.8 H (6.3-8.2) g/dL Albumin 5.0 (3.5-5.0) g/dL Globulin 3.8 (1.7-4.1) g/dL Albumin/Globulin Ratio 1.3 (1.0-2.8) SARS-CoV-2 (PCR) (Negative) 03/19/23 Range/Units 19:45 WBC (4.5-11.0) X10^3/uL RBC (4.5-5.9) X10^6/uL Hgb (13.5-17.5) g/dL Hct (41-53) % MCV (80-100) fL MCH (26-34) PG MCHC (30-36) % RDW (11.6-14.8) % Plt Count (150-400) X10^3/uL Neut % (Auto) (50-75) % Lymph % (Auto) (25-40) % Price % (Auto) (3-14) % Eos % (Auto) (2-4) % Baso % (Auto) (0-2) % Neut # (Auto) (3663-6670) /uL Lymph # (Auto) (8063-2579) /uL Price # (Auto) (0-900) /uL Eos # (Auto) (0-450) /uL Baso # (Auto) (0-100) /uL ESR (0-15) MM/HR Sodium (137-145) mmol/L Potassium (3.4-5.1) mmol/L Chloride (98-107) mmol/L Carbon Dioxide (22-32) mmol/L BUN (9-20) mg/dL Creatinine (0.66-1.25) mg/dL Estimated GFR (>60) mL/min BUN/Creatinine Ratio (6-22) Glucose (70-100) mg/dL Lactate (0.7-2.1) mmol/L Calcium (8.4-10.2) mg/dL Total Bilirubin (0.2-1.3) mg/dL AST (17-59) IU/L ALT (<50) IU/L Alkaline Phosphatase (38-126) U/L C-Reactive Protein (<1.0) mg/dL Total Protein (6.3-8.2) g/dL Albumin (3.5-5.0) g/dL Globulin (1.7-4.1) g/dL Albumin/Globulin Ratio (1.0-2.8) SARS-CoV-2 (PCR) Negative (Negative) Imaging Data Extremity x-ray #1: Radiologist's Impression: [address] [place] [address] XRay Report Signed Patient: Pardeep Farrell MR#: [id number] : 1975 Acct:[id number] Age/Sex: 48 / M Date of Service: 03/19/23 Loc: ED Accession Number: [id number] ?? Procedure: XR toe RT min 2V Ordering Provider: Raffaele Sethi D.O. PROCEDURE:? XR TOE RT MIN 2V ? INDICATIONS:? possible osteomyelitis, fracture ? TECHNIQUE:? 3 views of the 3rd toe(s) acquired.? ? COMPARISON:? None. ? FINDINGS:? ? Bones:? There is a comminuted fracture within the mid and distal aspect of the 3rd distal phalanx.? There is displacement of fracture fragments.? There is loss of mineralization within fragments particularly within the midportion of the fracture.? There is disruption of the distal cortex. ? Soft tissues:? No suspicious soft tissue densities.? ? IMPRESSION:? Comminuted fracture within the 3rd distal phalanx with displacement of fracture fragments. Loss of mineralization within several of the fragments particularly within the midportion of the fracture, as well as disruption of the distal cortex.? Overall appearance is suspicious for superimposed osteomyelitis.? ? Dictated by: Brinda Falcon M.D. on 03/19/2023 at 18:50 ? ? Approved by: Brinda Falcon M.D. on 03/19/2023 at 18:51 ? MDM Narrative Medical decision making narrative: MDM * differential diagnosis includes but not limited to cellulitis, abscess, fracture, osteomyelitis * Prior records reviewed: Patient has not been here for similar complaints in the past. History of hypertension. * My lab interpretation: Lab work pending * My imgaing interpretation: Toe x-ray concerning for osteomyelitis * Clinical Decision Rules/Scores evaluated: None * Independent discussions with: None ED Course: This is a 48-year-old male presents emergency department with concerns of a right 3rd toe infection. X-rays were taken which showed a right 3rd toe fracture as well as concerns for osteomyelitis. These findings were discussed with Dr. Arce, orthopedist, who recommended admission with IV antibiotics and stated that she will see him later tonight. Patient was given IV vancomycin as well as ciprofloxacin. Anaphylactic penicillin allergy. Lab work ordered and pending. Discussed the case with Dr. Wall, who kindly accepted the patient for admission. Shared Decision Making: Discussed plan with patient who is comfortable with the plan. Social Considerations: None Disposition: Admit <Virgen Santacruz, - Last Filed: 03/20/23 08:29> Lab Data Labs: Lab Results 03/19/23 03/19/23 03/19/23 Range/Units 19:30 19:30 19:30 WBC 6.8 (4.5-11.0) X10^3/uL RBC 4.88 (4.5-5.9) X10^6/uL Hgb 15.5 (13.5-17.5) g/dL Hct 44.4 (41-53) % MCV 91.0 (80-100) fL MCH 31.8 (26-34) PG MCHC 35.0 (30-36) % RDW 13.7 (11.6-14.8) % Plt Count 182 (150-400) X10^3/uL Neut % (Auto) 66.6 (50-75) % Lymph % (Auto) 21.7 L (25-40) % Price % (Auto) 9.8 (3-14) % Eos % (Auto) 0.6 L (2-4) % Baso % (Auto) 1.3 (0-2) % Neut # (Auto) 4500 (5925-2054) /uL Lymph # (Auto) 1500 (9285-8271) /uL Price # (Auto) 700 (0-900) /uL Eos # (Auto) 0 (0-450) /uL Baso # (Auto) 100 (0-100) /uL ESR 4 (0-15) MM/HR Sodium 136 L (137-145) mmol/L Potassium 4.0 (3.4-5.1) mmol/L Chloride 98 (98-107) mmol/L Carbon Dioxide 23 (22-32) mmol/L BUN 11 (9-20) mg/dL Creatinine 0.67 (0.66-1.25) mg/dL Estimated GFR > 60 (>60) mL/min BUN/Creatinine Ratio 16.4 (6-22) Glucose 113 H (70-100) mg/dL Lactate 1.8 (0.7-2.1) mmol/L Calcium 9.6 (8.4-10.2) mg/dL Total Bilirubin 2.9 H (0.2-1.3) mg/dL AST 168 H (17-59) IU/L ALT 156 H (<50) IU/L Alkaline Phosphatase 112 (38-126) U/L C-Reactive Protein < 0.5 (<1.0) mg/dL Total Protein 8.8 H (6.3-8.2) g/dL Albumin 5.0 (3.5-5.0) g/dL Globulin 3.8 (1.7-4.1) g/dL Albumin/Globulin Ratio 1.3 (1.0-2.8) SARS-CoV-2 (PCR) (Negative) 03/19/23 Range/Units 19:45 WBC (4.5-11.0) X10^3/uL RBC (4.5-5.9) X10^6/uL Hgb (13.5-17.5) g/dL Hct (41-53) % MCV (80-100) fL MCH (26-34) PG MCHC (30-36) % RDW (11.6-14.8) % Plt Count (150-400) X10^3/uL Neut % (Auto) (50-75) % Lymph % (Auto) (25-40) % Price % (Auto) (3-14) % Eos % (Auto) (2-4) % Baso % (Auto) (0-2) % Neut # (Auto) (4450-6248) /uL Lymph # (Auto) (1979-9988) /uL Price # (Auto) (0-900) /uL Eos # (Auto) (0-450) /uL Baso # (Auto) (0-100) /uL ESR (0-15) MM/HR Sodium (137-145) mmol/L Potassium (3.4-5.1) mmol/L Chloride (98-107) mmol/L Carbon Dioxide (22-32) mmol/L BUN (9-20) mg/dL Creatinine (0.66-1.25) mg/dL Estimated GFR (>60) mL/min BUN/Creatinine Ratio (6-22) Glucose (70-100) mg/dL Lactate (0.7-2.1) mmol/L Calcium (8.4-10.2) mg/dL Total Bilirubin (0.2-1.3) mg/dL AST (17-59) IU/L ALT (<50) IU/L Alkaline Phosphatase (38-126) U/L C-Reactive Protein (<1.0) mg/dL Total Protein (6.3-8.2) g/dL Albumin (3.5-5.0) g/dL Globulin (1.7-4.1) g/dL Albumin/Globulin Ratio (1.0-2.8) SARS-CoV-2 (PCR) Negative (Negative) Discharge Plan Departure Patient Disposition: Admitted as Observation Clinical Impression: Osteomyelitis Admit Date/Time: 03/19/23 20:08 Admit Provider: Brandon Wall <Virgen Santacruz DO - Last Filed: 03/20/23 08:29> Cosign ED Attending Miladisature Attestation: I was immediately available in the department for consultation. Documentation has been reviewed.
[2023-03-19 19:41] LABS: Add Manual Diff / Slide Review NO; Basophils Absolute Auto 100 /uL (0-100); Basophils Percent Auto 1.3 % (0-2); Eosinophils Absolute Auto 0 /uL (0-450); Eosinophils Percent Auto 0.6 % (2-4); Hematocrit 44.4 % (41-53); Hemoglobin 15.5 g/dL (13.5-17.5); Lymphocytes Absolute Auto 1500 /uL (1100-4500); Lymphocytes Percent Auto 21.7 % (25-40); Mean Corpuscular Hemoglobin 31.8 PG (26-34); Monocytes Absolute Auto 700 /uL (0-900); Monocytes Percent Auto 9.8 % (3-14); Neutrophils Absolute Auto 4500 /uL (1500-7000); Neutrophils Percent Auto 66.6 % (50-75); Platelet Count 182 X10^3/uL (150-400); Red Blood Cell Count 4.88 X10^6/uL (4.5-5.9); Red Cell Distribution Width 13.7 % (11.6-14.8); White Blood Cell Count 6.8 X10^3/uL (4.5-11.0)
[2023-03-19 19:53] VITALS: BP 153/92; PULSE 84; RESP 19; O2SAT 97
[2023-03-19 19:54] LABS: Lactate (Lactic Acid) 1.8 mmol/L (0.7-2.1)
[2023-03-19 19:58] LABS: Alanine Aminotransferase 156 IU/L (<50); Albumin Globulin Ratio 1.3 (1.0-2.8); Alkaline Phosphatase 112 U/L (38-126); Aspartate Aminotransferase 168 IU/L (17-59); BUN Creatinine Ratio 16.4 (6-22); Bilirubin Total 2.9 mg/dL (0.2-1.3); Blood Urea Nitrogen 11 mg/dL (9-20); C-Reactive Protein Quant < 0.5 mg/dL (<1.0); Calcium 9.6 mg/dL (8.4-10.2); Carbon Dioxide 23 mmol/L (22-32); Chloride 98 mmol/L (98-107); Estimated Glomerular Filt Rate > 60 mL/min (>60); Globulin 3.8 g/dL (1.7-4.1); Glucose 113 mg/dL (70-100); HEMOLYSIS 19 (0-50); Sodium 136 mmol/L (137-145); Total Protein 8.8 g/dL (6.3-8.2)
[2023-03-19 20:06] LABS: Erythrocyte Sedimentation Rate 4 MM/HR (0-15)
[2023-03-19 20:16] VITALS: BMI 33.0
[2023-03-19 20:25] VITALS: BP 153/104; PULSE 82; RESP 19; TEMP 36.3; O2SAT 96
[2023-03-19 20:43] LABS: COVID19 -Nasal RAPID Negative (Negative)
[2023-03-19] MEDS: levoFLOXacin 750 MG/150 ML PIGGYBACK 100 MG IV (21:07)
--- NOTE | 2023-03-19 21:50 | PC.NURSE ---
Addendum entered by Shannen Bond R.N. 03/21/23 01:13: EDIT: ADDED PHOTO Original Note: Pictures taken of R distal third digit, waiting upload.
--- NOTE | 2023-03-19 22:19 | PM.CN ---
History of Present Illness Consult details Date Patient Seen: 03/19/23 Time Patient Seen: 22:19 Chief complaint: Infected toe, Thinks sepsis Reason for consult: Toe osteomyelitis Requesting provider: Brandon Wall Narrative: The patient is a 48-year-old male that works at the [employer]. He works on [employer]. Injured his right 3rd toe dropping a log on it while camping about 3 weeks ago. States he was [facility] [place] in a very remote area and then when he came back immediately had to leave to go to [employer] for work. He just got home yesterday and showed his toe to his neighbor who is a physician and he was instructed to come to the hospital. Was evaluated at [facility] Emergency room found to have a swollen toe with erythema a wound and purulence. An x-ray demonstrated destruction of the distal phalanx consistent with osteomyelitis after a fracture likely open fracture from crush injury given the mechanism. The patient does not have fevers or chills. He does not have any other injuries. He is had multiple prior orthopedic surgeries including cubital tunnel releases and back surgery. He has an allergy to penicillins documented as anaphylaxis Meds Home Medications and Allergies Home Medications Medication Instructions Recorded Confirmed Type lisinopril 20 mg tablet 40 mg PO DAILY 11/15/19 03/19/23 History acetaminophen 500 mg capsule 500 mg PO Q4H PRN pain (scale 06/28/22 03/19/23 Rx score 1-3) #90 caps docusate sodium 100 mg capsule 100 mg PO BID PRN Constipation 06/28/22 03/19/23 Rx from narcotic pain meds #30 caps gabapentin 300 mg capsule 300 mg PO BID #60 caps 06/28/22 03/19/23 Rx (Neurontin) hydromorphone 2 mg tablet See Rx Instructions .Route 06/28/22 03/19/23 Rx .COMPLEX PRN Pain, Moderate (4-6) #60 tabs hydroxyzine pamoate 25 mg capsule 25 mg PO Q4HR PRN Muscle 06/28/22 03/19/23 Rx spasm/pain/nausea #60 caps polyethylene glycol 3350 17 gram 17 g PO BID PRN constipation #30 ea 06/28/22 03/19/23 Rx oral powder packet sennosides 8.6 mg tablet (senna) 17.2 mg PO BEDTIME PRN 06/28/22 Rx constipation #30 tabs Allergies Allergy/AdvReac Type Severity Reaction Status Date / Time Penicillins Allergy Severe Anaphylaxis Verified 03/19/23 18:13 Review of Systems Review of Systems ROS: Yes All systems reviewed with the patient and are negative except as otherwise documented Exam Vital Signs (past 8 hours): - 03/19/23 18:09 03/19/23 19:53 03/19/23 20:25 Temperature 98.7 F 97.4 F L Pulse Rate 80 84 82 Respiratory Rate 16 19 19 Blood Pressure 156/98 H 153/92 H 153/104 H Pulse Oximetry 97 97 96 Oxygen Delivery Method Room Air Room Air Oxygen Delivery Method Room Air Narrative Exam Narrative: Alert oriented male in no acute distress lying in bed. Multiple tattoos. Heart regular rate and rhythm. Lungs clear to auscultation bilaterally. Moving bilateral upper extremities without limitations. Multiple tattoos. She healed cubital tunnel release scars. Several other heal traumatic scars. Bilateral lower extremities. Moving bilateral feet ankles knees without limitation. Right 3rd toe with a dressing on this was removed demonstrates swelling and erythema of the distal phalanx 3rd toe there is a transverse laceration at the level of the D IP joint that is deep and this area demarcates the erythema and swelling consistent with location of likely previous open fracture. There is a small amount of erythema just proximal to this the level of the distal middle phalanx. There is no erythema over the dorsum of the foot or ascending cellulitis. Calf is soft. Palpable dorsalis pedis pulses. Sensation grossly intact to light touch. Objective Imaging X-ray three views right foot: My impression: AP oblique and lateral right foot 3rd toe demonstrate destruction of distal phalanx 3rd toe with comminution and bone loss consistent with osteomyelitis or osteomyelitis superimposed on a previous fracture Radiologist's impression: . Right 3rd Toe comminuted fracture with features of osteomyelitis Labs 03/19/23 19:30 03/19/23 19:30 Labs: Laboratory Results - last 24 hr 03/19/23 03/19/23 03/19/23 19:30 19:30 19:30 WBC 6.8 RBC 4.88 Hgb 15.5 Hct 44.4 MCV 91.0 MCH 31.8 MCHC 35.0 RDW 13.7 Plt Count 182 Neut % (Auto) 66.6 Lymph % (Auto) 21.7 L [place] % (Auto) 9.8 Eos % (Auto) 0.6 L Baso % (Auto) 1.3 Neut # (Auto) 4500 Lymph # (Auto) 1500 [place] # (Auto) 700 Eos # (Auto) 0 Baso # (Auto) 100 ESR 4 Sodium 136 L Potassium 4.0 Chloride 98 Carbon Dioxide 23 BUN 11 Creatinine 0.67 Estimated GFR > 60 BUN/Creatinine Ratio 16.4 Glucose 113 H Lactate 1.8 Calcium 9.6 Total Bilirubin 2.9 H AST 168 H ALT 156 H Alkaline Phosphatase 112 C-Reactive Protein < 0.5 Total Protein 8.8 H Albumin 5.0 Globulin 3.8 Albumin/Globulin Ratio 1.3 SARS-CoV-2 (PCR) 03/19/23 19:45 WBC RBC Hgb Hct MCV MCH MCHC RDW Plt Count Neut % (Auto) Lymph % (Auto) [place] % (Auto) Eos % (Auto) Baso % (Auto) Neut # (Auto) Lymph # (Auto) [place] # (Auto) Eos # (Auto) Baso # (Auto) ESR Sodium Potassium Chloride Carbon Dioxide BUN Creatinine Estimated GFR BUN/Creatinine Ratio Glucose Lactate Calcium Total Bilirubin AST ALT Alkaline Phosphatase C-Reactive Protein Total Protein Albumin Globulin Albumin/Globulin Ratio SARS-CoV-2 (PCR) Negative CRP is normal white count and hemoglobin normal [facility] Medical History HTN (hypertension) Social History household members: spouse Tobacco & Substance Use Smoking Status: Never smoker alcohol intake: current Assessment & Plan Assessment and plan (1) Osteomyelitis: Status: Acute (2) Toe osteomyelitis, right: Status: Acute Plan Patient has a right 3rd toe distal phalanx osteomyelitis this is secondary to an open fracture sustained 3 weeks ago. He is not septic but he has bony destruction. Discussed the distal phalanx is not salvageable. Non operative treatment would be extended course IV antibiotics approximately 6 weeks and then they are still be a possibility of residual infection and further problems. I have recommended curative treatment of partial amputation of the right toe. Discussed based on the area of the wound would likely need to take the middle phalanx as well and best level would be through the proximal phalanx for good soft tissue coverage and reduce the risk of need of additional procedures or prolonged antibiotics or risk of residual infection. Discussed that healing would be 2-3 weeks typically for toe amputation healing and he would be able to weightbear as tolerated immediately in the postoperative shoe and would not need any extended IV antibiotics. He will be able to be discharged home on a few days of oral antibiotic. The risks and benefits were discussed. The patient would like to proceed with partial amputation right great toe. We will plan this for tomorrow. He will be NPO at midnight. The risks and benefits of the procedure have been discussed with the patient and given the opportunity to ask questions. The risks of surgery include but are not limited to infection,persistence of pain, damage to nerves and blood vessels, need for additional procedures. The patient expressed a thorough understanding of the risks and benefits of surgery and has elected to proceed. Consent was signed. Medical decision-making moderate. Decision for surgery. Patient indicated for hospitalization for open fracture that has gone on to osteomyelitis with bone destruction and purulence. Indicated for IV antibiotics until amputation can be arranged which will be tomorrow. Decision for surgery. Discussed risks and benefits of surgical and nonsurgical treatment. COVID-19 COVID-19 status: Negative Time Spent With Patient Time with patient: 30 to 49 minutes with 50% spent counseling/coordinating care
--- NOTE | 2023-03-19 22:46 | P.HP_ITS ---
History of Present Illness History of Present Illness Date Patient Seen: 03/19/23 Time Patient Seen: 20:00 Chief complaint: Infected toe, Thinks sepsis Narrative: Mr. Farrell is a 48M with PMH HTN who presents to the hospital with toe injury. He was camping a few weeks ago when he injured his right 3rd toe when he dropped something on it. He had a open wound, but has been busy with work, so could not get it evaluated. He felt the toe was mostly improving, but within the last day he has felt fevers and chills. He does not have any significant pain. He has not noticed much purulence. In the ED workup was done, vitals notable for afebrile, heart rate in 80s, respiratory rate in teens, blood pressure 150s/90s, sats 97% on room air. Labs reviewed by me and notable for WBC 6.8, hgb 15.5, plts 182. Na 136, creatinine 0.67. Lactate 1.8. ESR 4. CPR negative. LFTs with bili 2.9, AST/ALT 168/156, alk phos 112. Xray reviewed by me and notable for fracture of 3rd right toe and bone loss. Orthopedic surgery was consulted and recommended admission for IV antibio tics and plan for amputation of toe. He was admitted for further treatment. [facility] Medical History HTN (hypertension) Social History household members: spouse Smoking Status: Never smoker alcohol intake: current Meds Home Medications and Allergies Home Medications Medication Instructions Recorded Confirmed Type lisinopril 20 mg tablet 40 mg PO DAILY 11/15/19 03/19/23 History acetaminophen 500 mg capsule 500 mg PO Q4H PRN pain (scale 06/28/22 03/19/23 Rx score 1-3) #90 caps docusate sodium 100 mg capsule 100 mg PO BID PRN Constipation 06/28/22 03/19/23 Rx from narcotic pain meds #30 caps gabapentin 300 mg capsule 300 mg PO BID #60 caps 06/28/22 03/19/23 Rx (Neurontin) hydromorphone 2 mg tablet See Rx Instructions .Route 06/28/22 03/19/23 Rx .COMPLEX PRN Pain, Moderate (4-6) #60 tabs hydroxyzine pamoate 25 mg capsule 25 mg PO Q4HR PRN Muscle 06/28/22 03/19/23 Rx spasm/pain/nausea #60 caps polyethylene glycol 3350 17 gram 17 g PO BID PRN constipation #30 ea 06/28/22 03/19/23 Rx oral powder packet sennosides 8.6 mg tablet (senna) 17.2 mg PO BEDTIME PRN 06/28/22 Rx constipation #30 tabs Allergies Allergy/AdvReac Type Severity Reaction Status Date / Time Penicillins Allergy Severe Anaphylaxis Verified 03/19/23 18:13 Review of Systems Review of Systems Narrative: 14 systems reviewed and negative aside from what is noted in HPI Exam Vital Signs (past 8 hours): - 03/19/23 18:09 03/19/23 19:53 03/19/23 20:25 Temperature 98.7 F 97.4 F L Pulse Rate 80 84 82 Respiratory Rate 16 19 19 Blood Pressure 156/98 H 153/92 H 153/104 H Pulse Oximetry 97 97 96 Oxygen Delivery Method Room Air Room Air Oxygen Delivery Method Room Air Narrative Exam Narrative: GEN: no acute distress HEENT: moist mucous membranes, PERRL NECK: trachea midline, no jvd PULM: clear bilaterally CV: regular, rate and rhythm, no murmurs ABD: soft, nontender, nondistended, no organomegaly EXT: warm and well perfused, r 3rd toe with swelling and erythema, there is a deep healing laceration at the level of the DIP joint, no purulence noted NEURO: awake, alert, oriented, no focal deficits Objective Labs 03/19/23 19:30 03/19/23 19:30 Labs: Laboratory Results - last 24 hr 03/19/23 03/19/23 03/19/23 19:30 19:30 19:30 WBC 6.8 RBC 4.88 Hgb 15.5 Hct 44.4 MCV 91.0 MCH 31.8 MCHC 35.0 RDW 13.7 Plt Count 182 Neut % (Auto) 66.6 Lymph % (Auto) 21.7 L [place] % (Auto) 9.8 Eos % (Auto) 0.6 L Baso % (Auto) 1.3 Neut # (Auto) 4500 Lymph # (Auto) 1500 [place] # (Auto) 700 Eos # (Auto) 0 Baso # (Auto) 100 ESR 4 Sodium 136 L Potassium 4.0 Chloride 98 Carbon Dioxide 23 BUN 11 Creatinine 0.67 Estimated GFR > 60 BUN/Creatinine Ratio 16.4 Glucose 113 H Lactate 1.8 Calcium 9.6 Total Bilirubin 2.9 H AST 168 H ALT 156 H Alkaline Phosphatase 112 C-Reactive Protein < 0.5 Total Protein 8.8 H Albumin 5.0 Globulin 3.8 Albumin/Globulin Ratio 1.3 SARS-CoV-2 (PCR) 03/19/23 19:45 WBC RBC Hgb Hct MCV MCH MCHC RDW Plt Count Neut % (Auto) Lymph % (Auto) [place] % (Auto) Eos % (Auto) Baso % (Auto) Neut # (Auto) Lymph # (Auto) [place] # (Auto) Eos # (Auto) Baso # (Auto) ESR Sodium Potassium Chloride Carbon Dioxide BUN Creatinine Estimated GFR BUN/Creatinine Ratio Glucose Lactate Calcium Total Bilirubin AST ALT Alkaline Phosphatase C-Reactive Protein Total Protein Albumin Globulin Albumin/Globulin Ratio SARS-CoV-2 (PCR) Negative Assessment & Plan Assessment & Plan narrative: 1. Toe injury with concern for cellulitis and osteomyelitis -toe with swelling and erythema, concerning for cellulitis -xray shows bone loss in distal portion of 3rd right toe, concerning for osteomyelitis -ordered IV antibiotics with vanc, levaquin as has anaphylaxis to penicillin -NPO after midnight -pain medications ordered -ortho consulted who are evaluating patient for possible toe amputation 2. Hypertension -hold anti-hypertensives 3. Elevated liver function tests -asymptomatic -repeat tomorrow -may need outpatient workup if not resolving I have discussed planand obtained history from the patient. I have discussed plan of care with ED physician, bedside nurse, orthopedic surgeon. I have reviewed labs, imaging. CODE: Full Proxy: none Quality VTE Deep Vein Thrombosis/Pulmonary Embolism Present on Admission: No MIPS - Meds 'Current medications' to include all prescriptions, [id number] products, herbals, cannabis/cannabidiol products, and vitamin/mineral/dietary (nutritional) supplements. I have utilized all available resources to obtain, update, or review the patient?s current medications. [If Yes, STOP here]: Yes
[2023-03-19] MEDS: VANCOMYCIN 1,000 MG/200 ML PIGGYBACK 200 MG IV (23:11)
[2023-03-20] VITALS (14 sets, daily range): BP systolic 119–171; BP diastolic 69–112; PULSE 66–91; RESP 16–20; TEMP 35.7–36.8; O2SAT 95–100; BMI 34.0
--- NOTE | 2023-03-20 | DI.RAD.S_ITS ---
PROCEDURE: XR TOE RT MIN 2V INDICATIONS: TOE AMPUTATION TECHNIQUE: 1 views of the 3rd toe(s) acquired. COMPARISON: , , XR TOE RT MIN 2V, 03/19/2023, 18:12. FINDINGS: Single fluoroscopic image of the 3rd toe demonstrates amputation of the digit from the level of the proximal phalangeal head. IMPRESSION: Intraoperative fluoroscopic image demonstrating amputation of the 3rd toe from the proximal phalangeal head level. Dictated by: Arian Barboza [facility] Interpreted: Brinda Falcon MD on 03/20/2023 at 15:51 Transcribed by: ABIGAIL on 03/20/2023 at 15:52 Approved by: Brinda Falcon M.D. on 03/20/2023 at 17:46
--- NOTE | 2023-03-20 | PATH_ITS ---
[facility] Accession Number: [id number] No. of containers..02 Tissue . 01 Material submitted: . PART A: bone - RIGHT 3RD PHALANX MIDDLE PART B: bone - DISTAL 3RD PHALANX RIGHT . 01 Diagnosis: A. Right Third Phalanx Middle, Excision: Trabecular bone, negative for definite evidence of osteomyelitis in the sections examined. . B. Distal Third Phalanx Right, Amputation: Skin with epidermal hyperplasia/hyperkeratosis and neutrophilic scale crust and underlying dermis with fibrosis and chronic inflammation. Trabecular bone with evidence of remodeling, marrow fibrosis, and mixed neutrophilic and chronic inflammation, suggestive of acute on chronic osteomyelitis. Skin and soft tissue en face margin with epidermal hyperplasia/hyperkeratosis and dermal fibrosis with chronic inflammation. Articular surface en face bone margin with trabecular bone showing evidence of remodeling and interspersed marrow fibrosis. [facility] 03/23/2023 1627 Local . 01 Electronically signed: . Eulogio Alonzo MD, Dermatopathologist NPI- [id number] . 01 Gross description: . A. Received in formalin, labeled with the patient's name, , and right third phalanx middle, and consists of an unoriented fragment of bone with a small amount of attached soft tissue and two opposing articular surfaces. The fragment measures 1.0 cm in length by 1.0 cm in diameter. Sectioning reveals rios, trabecular osseous tissue that is difficult to section with a scalpel. The manufacturing sales representative longitudinal section is submitted in cassette A1 following decalcification. B. Received in formalin, labeled with the patient's name, , and distal third phalanx right, and consists of a disarticulated digit measuring 2.4 cm in length by 1.9 cm in diameter with rios, flakey skin significant for a hyperkeratotic area at the base of the rios nail bed measuring 0.6 x 0.3 cm and measures 0.2 cm from the nearest soft tissue margin. The soft tissue margin is inked blue while the articular surface is inked orange. Sectioning reveals red to rios soft tissue and rios trabecular osseous tissue that is relatively easy to section with a scalpel. Community Health Nurse Staff sections are submitted as follows: B1: Soft tissue margin en face. B2: Articular surface en face. B3: Full-thickness cross section to include lesion and underlying bone. Submitted for decalcification. ([id number]) /R 03/23/2023 1236 Local . 01 Pathologist provided ICD-10: M86.9 . 01 CPT . 453865, 333982, 081550, 538885 Specimen Comment: A courtesy copy of this report has been sent to [phone] Performed at: [facility] [address] [place] [address], [place], [place] [id number] MD Erasmo Long MD Phone: [phone]
[2023-03-20] MEDS: HYDROCODONE/ACET 5/325 TABLET 1 TAB PO ×3 (01:46→11:17)
[2023-03-20] MEDS: LACTATED RINGERS 1,000 ML 100 ML IV ×2 (02:07→13:41)
[2023-03-20 06:08] LABS: Add Manual Diff / Slide Review NO; Basophils Absolute Auto 100 /uL (0-100); Basophils Percent Auto 1.4 % (0-2); Eosinophils Absolute Auto 100 /uL (0-450); Eosinophils Percent Auto 2.1 % (2-4); Hematocrit 41.3 % (41-53); Hemoglobin 14.3 g/dL (13.5-17.5); Lymphocytes Absolute Auto 1700 /uL (1100-4500); Lymphocytes Percent Auto 24.9 % (25-40); Mean Corpuscular HGB Conc 34.6 % (30-36); Mean Corpuscular Hemoglobin 31.7 PG (26-34); Mean Corpuscular Volume 91.6 fL (80-100); Monocytes Absolute Auto 700 /uL (0-900); Monocytes Percent Auto 10.5 % (3-14); Neutrophils Absolute Auto 4100 /uL (1500-7000); Neutrophils Percent Auto 61.1 % (50-75); Platelet Count 162 X10^3/uL (150-400); Red Blood Cell Count 4.51 X10^6/uL (4.5-5.9); Red Cell Distribution Width 13.9 % (11.6-14.8); White Blood Cell Count 6.7 X10^3/uL (4.5-11.0)
[2023-03-20 06:22] LABS: Alanine Aminotransferase 141 IU/L (<50); Albumin 4.6 g/dL (3.5-5.0); Albumin Globulin Ratio 1.4 (1.0-2.8); Alkaline Phosphatase 109 U/L (38-126); Aspartate Aminotransferase 158 IU/L (17-59); BUN Creatinine Ratio 17.4 (6-22); Bilirubin Total 2.2 mg/dL (0.2-1.3); Blood Urea Nitrogen 12 mg/dL (9-20); Calcium 9.1 mg/dL (8.4-10.2); Carbon Dioxide 28 mmol/L (22-32); Chloride 97 mmol/L (98-107); Estimated Glomerular Filt Rate > 60 mL/min (>60); Globulin 3.3 g/dL (1.7-4.1); Glucose 102 mg/dL (70-100); HEMOLYSIS < 15 (0-50); Sodium 133 mmol/L (137-145); Total Protein 7.9 g/dL (6.3-8.2)
--- NOTE | 2023-03-20 07:05 | PM.PN.1 ---
Subjective Subjective Interval history: Patient feeling well and has no complaints. Awaiting surgery for his toe. Abd US today showed severe hepatic steatosis. Patient notes he just got back from a trip to [place] where he ate and drank lots of carbs and alcohol. He is interested in meeting with disc sander while here to discuss dietary changes for his IBARRA. Exam Vital Signs (past 8 hours): - 03/20/23 00:13 03/20/23 04:41 Temperature 96.3 F L Pulse Rate 77 Respiratory Rate 18 Blood Pressure 156/103 H 171/112 H Pulse Oximetry 97 Oxygen Delivery Method Room Air Narrative Exam Narrative: GEN: no acute distress HEENT: moist mucous membranes, PERRL NECK: trachea midline, no jvd PULM: clear bilaterally CV: regular, rate and rhythm, no murmurs ABD: soft, nontender, nondistended, no organomegaly EXT: warm and well perfused, r 3rd toe with swelling and erythema, there is a deep healing laceration at the level of the DIP joint, no purulence noted NEURO: awake, alert, oriented, no focal deficits Objective Labs 03/20/23 05:40 03/20/23 05:40 Labs: Laboratory Results - last 24 hr 03/19/23 03/19/23 03/19/23 19:30 19:30 19:30 WBC 6.8 RBC 4.88 Hgb 15.5 Hct 44.4 MCV 91.0 MCH 31.8 MCHC 35.0 RDW 13.7 Plt Count 182 Neut % (Auto) 66.6 Lymph % (Auto) 21.7 L [place] % (Auto) 9.8 Eos % (Auto) 0.6 L Baso % (Auto) 1.3 Neut # (Auto) 4500 Lymph # (Auto) 1500 [place] # (Auto) 700 Eos # (Auto) 0 Baso # (Auto) 100 ESR 4 Sodium 136 L Potassium 4.0 Chloride 98 Carbon Dioxide 23 BUN 11 Creatinine 0.67 Estimated GFR > 60 BUN/Creatinine Ratio 16.4 Glucose 113 H Lactate 1.8 Calcium 9.6 Total Bilirubin 2.9 H AST 168 H ALT 156 H Alkaline Phosphatase 112 C-Reactive Protein < 0.5 Total Protein 8.8 H Albumin 5.0 Globulin 3.8 Albumin/Globulin Ratio 1.3 SARS-CoV-2 (PCR) 03/19/23 03/20/23 03/20/23 19:45 05:40 05:40 WBC 6.7 RBC 4.51 Hgb 14.3 Hct 41.3 MCV 91.6 MCH 31.7 MCHC 34.6 RDW 13.9 Plt Count 162 Neut % (Auto) 61.1 Lymph % (Auto) 24.9 L [place] % (Auto) 10.5 Eos % (Auto) 2.1 Baso % (Auto) 1.4 Neut # (Auto) 4100 Lymph # (Auto) 1700 [place] # (Auto) 700 Eos # (Auto) 100 Baso # (Auto) 100 ESR Sodium 133 L Potassium 4.0 Chloride 97 L Carbon Dioxide 28 BUN 12 Creatinine 0.69 Estimated GFR > 60 BUN/Creatinine Ratio 17.4 Glucose 102 H Lactate Calcium 9.1 Total Bilirubin 2.2 H AST 158 H ALT 141 H Alkaline Phosphatase 109 C-Reactive Protein Total Protein 7.9 Albumin 4.6 Globulin 3.3 Albumin/Globulin Ratio 1.4 SARS-CoV-2 (PCR) Negative [facility] Medical History HTN (hypertension) Social History household members: spouse Smoking Status: Never smoker alcohol intake: current Assessment & Plan Assessment & Plan narrative: 1. Toe injury with concern for cellulitis and osteomyelitis -toe with swelling and erythema, concerning for cellulitis -xray shows bone loss in distal portion of 3rd right toe, concerning for osteomyelitis -ordered IV antibiotics with vanc, levaquin as has anaphylaxis to penicillin -NPO for toe removal surgery with ortho 5/5 -pain medications ordered 2. Hypertension -continue home lisinopril 3. Elevated liver function tests 2/2 IBARRA -asymptomatic -abd US shows severe fatty infiltration -hepatitis panel pending -dietary consult to discuss diet changes -lipid panel and A1c ordered CODE: Full Proxy: none Dispo: Home in next 1-2 days. Quality VTE Deep Vein Thrombosis/Pulmonary Embolism Present on Admission: No
--- NOTE | 2023-03-20 07:11 | DI.US.S_ITS ---
PROCEDURE: US ABDOMEN LIMITED INDICATIONS: ASSESS LIVER, ELEVATED LFT's TECHNIQUE: Real-time scanning was performed of the abdominal and retroperitoneal organs, with image documentation. COMPARISON: None. FINDINGS: Liver: Increased liver echogenicity with posterior attenuation, most consistent with moderate to severe steatosis. Gallbladder: Gallbladder sludge. Diffuse wall thickening, likely due to underlying liver disease. No distension. Negative sonographic Cox sign. Biliary ducts: Not visualized. Pancreas: Not visualized due to overlying bowel gas. Miscellaneous: No free abdominal fluid. IMPRESSION: Severe hepatic steatosis. In the setting of elevated LFTs (and absence of alcohol use or certain medications), findings may indicate IBARRA. Dictated by: Kevin Hoyt M.D. on 03/20/2023 at 8:05 Approved by: Kevin Hoyt M.D. on 03/20/2023 at 8:07
[2023-03-20] MEDS: lisinopriL 20 MG TABLET 40 MG PO (08:11)
[2023-03-20 08:57] LABS: Cholesterol 221 mg/dL (140-199); HDL Cholesterol 52 mg/dL (40-60); LDL Cholesterol Calculated 149 mg/dL (<100); Triglycerides 102 mg/dL (35-150)
--- NOTE | 2023-03-20 09:04 | CM.DANOTE ---
Addendum entered by BENEDICT Singh 03/20/23 12:04: ADD: Met w/patient to introduce self and role. Patient plans to discharge home w/his neighbor (a physician) checking in on him. Patient denies daily drinking, says he drinks on Saturdays. Patient in good spirits, denies further needs from this BENEDICT Plan: Discharge home w/friend anticipated upon discharge WENDY Original Note: Initial DCP Assessment Note Pt is a 48 yo male, resident of [facility] active [place] [facility], injured his right toe after dropping a log on it while camping 3 weeks ago; subsequent destruction of the distal phalanx consistent with osteomyelitis after a fracture likely open fracture from crush injury Dr Arce taking patient to the OR today for partial amputation of the right toe PCP: [facility] Payer: Redd Holland Reviewed chart, initial assessment completed with information available on the chart Patient indp and active at baseline, [facility] (per note in Jun) and will discharge to the care of a friend to assist in recovery. Patient expected to be able to weight bear as tolerated immediately in a postoperative shoe and will likely discharge on oral abx No barriers identified at this time to patient's safe discharge home w/friends to assist; close outpatient f/u recommended. BENEDICT Sales Discharge Planning/Care Management CM Discharge Assessment Start: 03/20/23 08:55 Freq: Status: Active Protocol: Document 03/20/23 08:55 WENDY (Rec: 03/20/23 09:04 WENDY [id number]) Discharge Planning Assessment Assigned Electronic Tester BENEDICT García DPOA/Assigned Designee Name Renuka Caal Contact Information Lisa [phone] Renuka [phone] Advance Directives? No History Provided By Patient,Medical Record Prior Living Arrangements House Type of transporation used prior to Drives own vehicle admit Independent with ADL's Yes Is patient alert and oriented? Yes Barriers to Discharge No Comment Home w/friend and po abx expected Discharge Plan Home Transportation Arrangement Friend to transport Referrals Initiated None needed Additional Comment Following closely in case any DC needs or concerns arise
[2023-03-20] MEDS: ACETAMINOPHEN 325 MG TABLET 975 MG PO (13:39)
[2023-03-20] MEDS: PREGABALIN 75 MG CAPSULE PO (13:40)
--- NOTE | 2023-03-20 14:25 | PM.PREOP ---
Pre-operative Note Interval Note History & Physical reviewed/Exam performed by Physician: Yes Changes to H&P: No
--- NOTE | 2023-03-20 15:04 | SUR.OPER ---
Supine on padded OR bed, head on pillow, bump under right sidearms secured on padded arm boards at <90 degrees abduction, operative leg preped in feild, safety belt at thigh, tape over blanket over lower legs.
[2023-03-20] MEDS: BUPIVACAINE 0.25% (PF) 30 ML, EPINEPHrine 0.15 MG INJ (15:18)
--- NOTE | 2023-03-20 16:49 | P.OP_ITS ---
Operative Date/Time/Diagnoses Date of procedure: 03/20/23 Time of procedure: 16:50 Pre-op diagnosis: Toe osteomyelitis right Open fracture with osteomyelitis right 3rd toe Post-op diagnosis: same Procedure & Clinicians Procedure: Partial toe amputation right 3rd toe CPT 46175 modifier T7 Same procedure as scheduled: Yes Indications: Patient is a 48-year-old male that sustained a crush injury open fracture of the distal phalanx of right 3rd toe approximately 3 weeks ago while camping remotely. He did not seek any medical treatment. First presented to care yesterday. At that time he had a red swollen toe which was draining purulence. X-rays demonstrated evidence of significant osteomyelitis with significant bone loss dissolving nearly all of the distal phalanx. The laceration and purulence was draining at the level of the D IP joint. The patient was indicated for partial right 3rd toe amputation for eradication his osteomyelitis. The risks and benefits of the procedure have been discussed with the patient and given the opportunity to ask questions. The risks of surgery include but are not limited to infection, persistence of pain, damage to nerves and blood vessels, need for additional procedures, DVT, PE, cardiopulmonary complications and . The patient expressed a thorough understanding of the risks and benefits of surgery and has elected to proceed. Consent was signed. We discussed risks of non operative treatment with antibiotics and wound care or non amputation treatment with risk of persistent or recurrence of infection prolonged antibiotic need. We discussed amputation provides a more predictable outcome for discontinuing antibiotics, healing and reduce risk of persistent infection. Surgeon: Mita Arce Click Yes if Unassisted: Yes Anesthesia Type: General and Local Operative Notes Findings: Open wound with purulence dorsal right 3rd toe D IP joint level swollen soft bone consistent with osteomyelitis distal phalanx. Purulence near the level of the middle phalanx as well. The soft tissues compromised to the level. Therefore amputation taken to PIP joint. Closure Type: primary Specimen(s): none sent Estimated Blood Loss (mL): 5 Blood products transfused: none Tourniquet time (min): 13 Procedure in detail: Patient was seen in the preoperative area the site of surgery marked informed consent confirmed. He was brought back to the operating room by the anesthesia team positioned supine on operative table. General anesthetic was administered. The right lower extremity was prepped and draped in the standard sterile fashion. A formal time-out procedure was performed confirming the patient's side and site of surgery the patient was on scheduled antibiotics. Attention was turned to the right 3rd toe. It was found with the findings above. The leg was held for gravity exsanguination and the tourniquet on the calf was raised to 250 mmHg Incision for the amputation was marked out just proximal to the traumatic wound and the distal phalanx was amputated through the IP joint and sent for specimen. Separately the compromised tissue did involve tissue over the middle phalanx and signs of contamination of the D IP joint. Therefore the middle phalanx was also excised to allow a tension-free closure. Thorough irrigation was completed. The neurovascular bundles were dissected out cauterized and allowed to retract. The extensor and flexor tendons were cut and allowed to retract. Tourniquet was released. Hemostasis was achieved. The wound was closed with 3- 0 PDS 4-0 Monocryl and 4-0 nylon suture. Fluoroscopy confirmed level of amputation through the PIP joint. A sterile dressing was placed with Xeroform gauze Ochoa wrap and Coban. The patient was woken from anesthesia and taken to recovery room in good condition there were no immediate complications from this procedure. All counts were correct. Complications: none Post-operative Condition: stable Disposition: PACU Plan for aftercare: Weightbear as tolerated in the postoperative shoe. Keep dressing clean dry intact. It falls off can replace with a clean dressing. Stitches will remain in place until follow-up in Orthopedic Clinic in 2 weeks for wound check. Sutures remain in place at least 2 weeks but may require longer depending on healing. Can discontinue antibiotics after surgery.
--- NOTE | 2023-03-20 17:12 | PC.NURSE ---
1615, pt back from surgery awake, rt boot on. denied pain. PIV ROSEMARY.
--- NOTE | 2023-03-20 17:30 | DIET.CONS ---
Dietary Consultation Note Admission Date: 03/19/2023 20:08 Assessment: 48M admitted for a toe injury and found to have severe hepatic steatosis. RD consulted for IBARRA education. AST 158 H, ALT 141 H, Cholesterol 221 H, LDL 149 H, HDL 52, Hga1c pending Reports last hgA1c was good. Also reports LDL of 100 and low HDL in the 20s one year ago. Pardeep reports FH of DM, HTN, HLD, and [place] with brother and father, both young. Since the of his brother he has reduced meat intake. States he is mostly pescitarian, but admits to high intake of juice and saturated fats with dairy choices, ie full fat cottage cheese, block of cheddar per week. Low fiber intake and excessive ETOH intake on weekends. Reports limited ETOH during the week, but 4-5 servings 1-2x over the weekend. Endorse reduced physical activity recently due to back sx. Aims to walk 7500-10,000 steps per day now. [place]. Diet recall: 730a: nothing or full fat cottage cheese with 10oz juice and 2 pc fruit or 1p: foot long sandwich from deli, tuna 530p: 12oz fish, 1c rice Beverages: 20oz juice daily, water, unsweet tea, ETOH x 4-5 servings on weekend Ht: 185.42 cm Wt: 117 kg BMI: 33.0 Last BM: 03/19/23 (03/20/23 13:34) MNA: Bj Score: 20 Diet: 03/20/23 Dinner General (Regular) Diet Diet Modifications: Labs: RBC 4.51 X10^6/uL (4.5-5.9) 03/20/23 05:40 Hgb 14.3 g/dL (13.5-17.5) 03/20/23 05:40 Hct 41.3 % (41-53) 03/20/23 05:40 Creatinine 0.69 mg/dL (0.66-1.25) 03/20/23 05:40 Lactate 1.8 mmol/L (0.7-2.1) 03/19/23 19:30 Nutrition Diagnosis: Food and nutrition related knowledge deficit r/t new dx IBARRA aeb abd US and elevated liver enzymes. Interventions: Fatty liver and progressive nature Fats and fiber education Maintaining a healthy weight and aiming for central adiposity reduction information physical activity recommendations Impact of sugars on liver health and risk for DM Impact of metabolic d/o on liver health Impact of ETOH on liver health Mediterranean diet Community classes at : Cholesterol lowering and Mediterranean diet goals discussed: eliminate sugar beverages increase fiber intake with veggies and whole grains reduce saturated fat intake with cheese choices increase physical activity safely maintain healthy weight Consider community nutrition classes Monitoring/Evaluations: consult prn Electronically Signed by: Anne-Marie Carreon 03/20/23 17:30 Clinical Diet[address] [address]
[2023-03-20] MEDS: SODIUM CHLORIDE 0.9% FLUSH 10 ML IV (20:10)
[2023-03-21] MEDS: HYDROCODONE/ACET 5/325 TABLET 1 TAB PO ×2 (01:46→05:55)
[2023-03-21 01:54] LABS: Labcorp Hemoglobin (Hb) A1c 5.2 % (4.8-5.6)
[2023-03-21 06:21] LABS: Add Manual Diff / Slide Review NO; Basophils Absolute Auto 100 /uL (0-100); Basophils Percent Auto 1.3 % (0-2); Eosinophils Absolute Auto 200 /uL (0-450); Eosinophils Percent Auto 3.2 % (2-4); Hematocrit 41.6 % (41-53); Hemoglobin 14.2 g/dL (13.5-17.5); Lymphocytes Absolute Auto 1700 /uL (1100-4500); Lymphocytes Percent Auto 28.9 % (25-40); Mean Corpuscular Hemoglobin 31.5 PG (26-34); Mean Corpuscular Volume 92.6 fL (80-100); Monocytes Absolute Auto 500 /uL (0-900); Monocytes Percent Auto 8.8 % (3-14); Neutrophils Absolute Auto 3400 /uL (1500-7000); Neutrophils Percent Auto 57.8 % (50-75); Platelet Count 163 X10^3/uL (150-400); Red Cell Distribution Width 13.7 % (11.6-14.8); White Blood Cell Count 5.8 X10^3/uL (4.5-11.0)
[2023-03-21 06:29] VITALS: BP 139/85; PULSE 72; RESP 18; TEMP 36.6; O2SAT 95
[2023-03-21 06:29] LABS: BUN Creatinine Ratio 15.2 (6-22); Blood Urea Nitrogen 12 mg/dL (9-20); Carbon Dioxide 31 mmol/L (22-32); Chloride 97 mmol/L (98-107); Estimated Glomerular Filt Rate > 60 mL/min (>60); Glucose 93 mg/dL (70-100); HEMOLYSIS < 15 (0-50); Potassium 4.3 mmol/L (3.4-5.1); Sodium 136 mmol/L (137-145)
[2023-03-21 07:00] VITALS: O2SAT 94
--- NOTE | 2023-03-21 07:47 | PM.DS.1 ---
History of Present Illness History of Present Illness Date Patient Seen: 03/21/23 Chief complaint: Infected toe, Thinks sepsis Narrative: Mr. Farrell is a 48M with PMH HTN who presented to the hospital with toe injury. He was camping a few weeks prior when he injured his right 3rd toe when he dropped something on it. He had a open wound initially that healed, but has been busy with work, so could not get it evaluated. He felt the toe was mostly improving, but within the last day prior to presentation, he had felt fevers and chills. He did not have any significant pain. He had not noticed much purulence. Discharge Providers Provider Date of admission: 03/19/23 20:08 Discharge Date: 03/21/23 Primary care physician: Florentino LEGER Provider Consults: 03/19/23 20:05 Consult to Orthopedic Surgery Stat Comment: Consulting Provider: Mita Arce Reason for consultation: toe injury Has provider been notified: Yes 03/20/23 10:35 Consult to Dietitian, Adult Routine Comment: Reason For Exam: hepatic steatosis aka IBARRA Discharge provider: Heidi Minaya MD Summary Hospital Course Discharge Diagnosis: Toe injury -right 3rd toe Cellulitis right 3rd toe -Streptococcus group B positive culture Osteomyelitis right 3rd toe Amputation right 3rd toe Hypertension Elevated liver function tests 2/2 IBARRA Severe hepatic steatosis Hyperlipidemia with elevated LDL and HDL Diabetes ruled out Hospital Course: Patient is a 48-year-old male who presented post right 3rd toe injury. Initially with a wound that had healed. Prior to presentation patient was also beginning to have fever and chills. There was initial concern for sepsis, cellulitis right 3rd toe and underlying osteomyelitis right 3rd toe. X-ray confirmed fracture of the right 3rd toe and concern for osteomyelitis. Due to the concern for osteomyelitis and sepsis the patient was placed on vancomycin and Levaquin intravenous treatment and orthopedic surgery was consulted. Blood cultures were confirmed to be negative. Patient proceeded to the OR to amputate right 3rd toe. Cultures from the right 3rd toe were positive for Streptococcus group B. due to complete amputation of the infected tissue, the patient is not requiring antibiotics post discharge. Of note during the hospital stay patient had elevated liver enzymes. Ultrasound of the liver confirmed severe steatosis and concern for IBARRA. As well, there was elevation of LDL and HDL. Patient was advised to discontinue alcohol intake. He should follow-up with the orthopedic surgeon in 2 weeks and with his primary care physician within the next week to continue to monitor his hypertension and new diagnoses of severe hepatic steatosis/IBARRA as well as hyperlipidemia. Patient is to follow all instructions given by the orthopedic surgeon. Status at Discharge Cognitive/behavioral status at discharge: at baseline, oriented Functional status at discharge: independent ambulation Overall status at discharge: patient is back to baseline Time Spent with Patient Time spent: Greater than 30 minutes Exam Vital Signs (past 8 hours): - 03/21/23 06:29 Temperature 98 F Pulse Rate 72 Respiratory Rate 18 Blood Pressure 139/85 Pulse Oximetry 95 Oxygen Delivery Method Room Air Oxygen Flow Rate 0 Narrative Exam Narrative: GEN: no acute distress HEENT: moist mucous membranes, PERRL NECK: trachea midline, no jvd PULM: clear bilaterally CV: regular, rate and rhythm, no murmurs ABD: soft, nontender, nondistended, no organomegaly EXT: warm and well perfused, r 3rd toe amputated and in postoperative dressing NEURO: awake, alert, oriented, no focal deficits Objective Labs 03/21/23 05:58 03/21/23 05:58 Labs: Laboratory Results - last 24 hr 03/20/23 03/20/23 03/21/23 05:40 05:40 05:58 WBC 5.8 RBC 4.50 Hgb 14.2 Hct 41.6 MCV 92.6 MCH 31.5 MCHC 34.0 RDW 13.7 Plt Count 163 Neut % (Auto) 57.8 Lymph % (Auto) 28.9 [place] % (Auto) 8.8 Eos % (Auto) 3.2 Baso % (Auto) 1.3 Neut # (Auto) 3400 Lymph # (Auto) 1700 [place] # (Auto) 500 Eos # (Auto) 200 Baso # (Auto) 100 Sodium Potassium Chloride Carbon Dioxide BUN Creatinine Estimated GFR BUN/Creatinine Ratio Glucose Hgb A1c (Ref Lab) 5.2 Calcium Triglycerides 102 Cholesterol 221 H LDL Cholesterol, Calc 149 H HDL Cholesterol 52 03/21/23 05:58 WBC RBC Hgb Hct MCV MCH MCHC RDW Plt Count Neut % (Auto) Lymph % (Auto) [place] % (Auto) Eos % (Auto) Baso % (Auto) Neut # (Auto) Lymph # (Auto) [place] # (Auto) Eos # (Auto) Baso # (Auto) Sodium 136 L Potassium 4.3 Chloride 97 L Carbon Dioxide 31 BUN 12 Creatinine 0.79 Estimated GFR > 60 BUN/Creatinine Ratio 15.2 Glucose 93 Hgb A1c (Ref Lab) Calcium 9.0 Triglycerides Cholesterol LDL Cholesterol, Calc HDL Cholesterol PFSH Medical History HTN (hypertension) Social History household members: spouse Smoking Status: Never smoker alcohol intake: current Discharge Plan Discharge Plan Patient Disposition: Home Discharge orders & Medications Prescriptions: New hydrocodone-acetaminophen 5-325 mg Tablet 1 tab PO Q4H PRN (Reason: Pain, Moderate (4-6)) Qty: 30 0RF docusate sodium 100 mg Capsule 100 mg PO BID Qty: 30 0RF Continued lisinopril 20 mg tablet 40 mg PO DAILY acetaminophen 500 mg capsule 500 mg PO Q4H MDD Max 3000 mg per day PRN (Reason: pain (scale score 1-3)) Qty: 90 0RF polyethylene glycol 3350 17 gram Powder In Packet 17 g PO BID PRN (Reason: constipation) Qty: 30 0RF sennosides [senna] 8.6 mg Tablet 17.2 mg PO BEDTIME PRN (Reason: constipation) Qty: 30 0RF Discontinued docusate sodium 100 mg Capsule 100 mg PO BID PRN (Reason: Constipation from narcotic pain meds) Qty: 30 0RF Patient Comments: does not take gabapentin [Neurontin] 300 mg Capsule 300 mg PO BID Qty: 60 0RF Patient Comments: no longer takes Rx Instructions: For nerve pain hydromorphone 2 mg Tablet See Rx Instructions .ROUTE .COMPLEX PRN (Reason: Pain, Moderate (4-6)) Qty: 60 0RF Patient Comments: no longer takes Rx Instructions: Take 1-2 tablets by mouth every 3 hours as needed for moderate to severe pain hydroxyzine pamoate 25 mg Capsule 25 mg PO Q4HR PRN (Reason: Muscle spasm/pain/nausea) Qty: 60 0RF Patient Comments: no longer takes Follow up/Referrals: ProviderFlorentino [Primary Care Provider] - Visit Report/Discharge Packet Stand Alone Forms: Patient Portal/API, Stroke Signs & Symptoms Discharge Data Primary Care Provider: Provider,[place] Quality VTE Deep Vein Thrombosis/Pulmonary Embolism Present on Admission: No
[2023-03-21] MEDS: ACETAMINOPHEN 325 MG TABLET 650 MG PO (08:26)
[2023-03-21] MEDS: ENOXAPARIN 40 MG/0.4 ML SYRINGE SUBCUT (08:26)
[2023-03-21 08:27] VITALS: BP 113/90; PULSE 84
[2023-03-21] MEDS: lisinopriL 20 MG TABLET 40 MG PO (08:27)
[2023-03-21] MEDS: DOCUSATE 100 MG CAPSULE PO (08:28)
[2023-03-21] MEDS: SODIUM CHLORIDE 0.9% FLUSH 10 ML IV (08:28)
[2023-03-21 09:00] VITALS: BP 113/80; PULSE 84; RESP 17; TEMP 36.2; O2SAT 94
[2023-03-23 11:54] LABS: HBsAg Screen Negative (Negative); Hepatitis A Antibody IgM Negative (Negative); Hepatitis B Core Antibody IgM Negative (Negative); Hepatitis C Antibody Non Reactive (Non Reactive)
== END 2023-03-21 09:50 | disposition home or self-care (01) | DRG 505 ==
LOC: ED 18:16 → AC 19:47 → ED 20:00 → AC 20:18
PROVIDERS: Orthopaedic Surgery Foot and Ankle Surgery; Student in an Organized Health Care Education/Training Program; Admitting Provider Internal Medicine; Emergency Provider Physician Assistant Medical; Referring Provider Physician Assistant Medical; Visit Provider Internal Medicine
PROC: 0Y6T0Z3 Detachment at Right 3rd Toe, Low, Open Approach (ICD-10-PCS; principal; 2023-03-20 14:15)
DX: M86.8X7 Other osteomyelitis, ankle and foot (principal); L03.032 Cellulitis of left toe; K75.81 Nonalcoholic steatohepatitis (NASH); I10 Essential (primary) hypertension; R79.89 Other specified abnormal findings of blood chemistry; B95.1 Streptococcus, group B, as the cause of diseases classified elsewhere; E78.5 Hyperlipidemia, unspecified; S92.531A Displaced fracture of distal phalanx of right lesser toe(s), initial encounter for closed fracture; W20.8XXA Other cause of strike by thrown, projected or falling object, initial encounter; Z20.822 Contact with and (suspected) exposure to COVID-19
CPT/HCPCS: 36415; 73660; 76000; 76705; 80048; 80053; 80061; 80074; 83036; 83605; 85025; 85651; 86140; 87040; 87070; 87075; 87077; 87147; 87186; 87205; 87635; 99284; C9803; J0171; J1650; J1956; J2405; J2704; J3010